=== PATIENT | male | born 1980 | race Caucasian/White ===

== ENCOUNTER 2017-06-02 12:11 | Emergency (ER) | payer OTHER ==
[~2017-06-02] VITALS: Ht 175.3 cm; Wt 63.7 kg
[~2017-06-02 12:11] MED LIST: ALPR1TAB3 PO; ALPR2TAB6 PO; AMPH10TA2 PO; CLON0.5T3 PO; CLON1TAB3 PO; OXYC20TA32 PO; POLY335019 PO
[2017-06-02 12:41] VITALS: TEMP 36.5; Ht 175.3 cm; Wt 63.7 kg
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
[2017-06-02] MEDS ORDERED: OXYCODONE HCL IR 5 MG TAB (IMMEDIATE RELEASE) PO STA (14:24)
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
[2017-06-02 14:43] VITALS: BP 129/84; PULSE 64; O2SAT 99
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
== END 2017-06-02 15:02 | disposition home or self-care (01) ==
LOC: C.EDB 12:13 → C.EDD 15:02
DX: T14.8 Other injury of unspecified body region (principal); Y04.0XXA Assault by unarmed brawl or fight, initial encounter; Y92.89 Other specified places as the place of occurrence of the external cause; F17.210 Nicotine dependence, cigarettes, uncomplicated; M54.17 Radiculopathy, lumbosacral region; K85.90 Acute pancreatitis without necrosis or infection, unspecified; I86.1 Scrotal varices; Z80.9 Family history of malignant neoplasm, unspecified

== ENCOUNTER 2017-07-02 10:34 | Emergency (ER) | payer OTHER ==
[~2017-07-02] VITALS: Ht 175.3 cm; Wt 67.1 kg
[2017-07-02 10:45] VITALS: TEMP 36.9; Ht 175.3 cm; Wt 67.1 kg
[2017-07-02] MEDS ORDERED: IBUP1CAP PO (10:57)
[2017-07-02] MEDS ORDERED: ALPR-411 PO (10:57)
[2017-07-02] MEDS ORDERED: HYDROCODONE/ACETAMOPHEN 5/325MG TAB PO STA (11:05)
[2017-07-02] MEDS ORDERED: AMOXICILLIN 500 MG CAP PO STA (11:05)
--- NOTE | 2017-07-02 11:11 | EMERGENCY ROOM VISIT NOTE ---
ED Visit Note First contact with patient: 10:57 CHIEF COMPLAINT: Toothache HISTORY OF PRESENT ILLNESS: This 29-year-old male patient has had a progressive toothache for 3 days in the right upper molar. The pain is now steady and severe and radiates to the face. He has an appointment on Tuesday with his dentist but states he did not sleep at all last night due to the pain. He has been taken [id number] Midol without any relief. The patient denies any palpable abscess in the mouth. Denies facial swelling or fever. REVIEW OF SYSTEMS: 6 system review was performed and was negative unless stated otherwise in history of present illness. PMH: The patient is healthy; half of pancreas removed as well as splenectomy SOCIAL HISTORY: Patient lives with his family. The patient admits to tobacco use but denies any alcohol use. PHYSICAL EXAM: Vital Signs: Were reviewed Reviewed Nurse's notes. GENERAL: 37- year-old white male appears uncomfortable secondary to tooth pain. MENTAL Status: Alert and oriented 3. MOUTH: Right upper molar is is tender to percussion. Mild gingiva erythema surrounding. No palpable abscess. FACE: There is no facial swelling, NECK: cervical or submandibular lymphadenopathy. LUNGS: Clear to auscultation without wheezes rales or rhonchi. CARDIAC: Regular rate and rhythm without murmur. EMERGENCY COURSE: The patient was evaluated. Prescription drug monitoring program was checked the patient does not have any recent chronic prescriptions. The patient was given dental wax. The patient was given [place] 5/325 mg 2 tablets by mouth for pain. He was also given amoxicillin 500 mg by mouth. The patient was discharged home with a family member driving. DIAGNOSIS: Dental caries and dentalgia DISCHARGE INSTRUCTIONS & TREATMENT: Take amoxicillin as prescribed. Ibuprofen 600 mg every 6 hours with food for pain. Take [place] as needed for more severe pain. Do not drive while taking the [place]. Use dental wax as directed. Keep scheduled appointment with your dentist on Tuesday for definitive care. Problem List Medical Problems: (1) Left lumbosacral radiculopathy Status: Chronic (2) Lumbar radicular pain Status: Chronic (3) Lumbar radicular pain Status: Chronic (4) Opioid dependence Status: Chronic (5) Pancreatic tumor Status: Resolved (6) Pancreatitis Status: Resolved (7) Scrotal Varices Status: Chronic Surgical Problems: (1) Femur fracture, right Status: Chronic (2) H/O splenectomy Status: Resolved (3) Pelvic fracture Status: Chronic Current/Historical Medications Scheduled PRN Alprazolam (Xanax), 1 TAB PO UD PRN for Anxiety Ibuprofen (Midol), 200 MG PO UD PRN for Pain Allergies Coded Allergies: No Known Allergies (Unverified , NONE, 07/02/17) Vital Signs Date Time Temp Pulse Resp B/P (MAP) Pulse Ox O2 Delivery O2 Flow Rate FiO2 07/02/17 10:45 36.9 55 20 104/63 94 Room Air Departure Information Referrals No Doctor, Assigned (PCP) Patient Instructions [facility]
[2017-07-02] MEDS ORDERED: HYDR-5688 PO (11:12)
[2017-07-02] MEDS ORDERED: AMOX500C3 PO (11:12)
[2017-07-02 11:44] VITALS: BP 132/64; PULSE 78; O2SAT 96
== END 2017-07-02 11:45 | disposition home or self-care (01) ==
LOC: C.EDB 10:36 → C.EDD 11:45
DX: K02.9 Dental caries, unspecified (principal); K08.89 Other specified disorders of teeth and supporting structures; M54.17 Radiculopathy, lumbosacral region; F11.20 Opioid dependence, uncomplicated; I86.1 Scrotal varices

== ENCOUNTER 2017-07-06 10:49 | Emergency (ER) | payer OTHER ==
[~2017-07-06] VITALS: Ht 175.3 cm; Wt 66.3 kg
[~2017-07-06 10:49] MED LIST changes: +ALPR-411 PO; -ALPR1TAB3 PO; -ALPR2TAB6 PO; +AMOX500C3 PO; -AMPH10TA2 PO; -CLON0.5T3 PO; -CLON1TAB3 PO; +HYDR-5688 PO; +IBUP1CAP PO; -OXYC20TA32 PO; -POLY335019 PO
[2017-07-06 10:54] VITALS: TEMP 36.8; Ht 175.3 cm; Wt 66.3 kg
[2017-07-06] MEDS ORDERED: MoRPHine SULFATE 4 MG/ML 1 ML CARP\\VIAL IV STA (11:29)
[2017-07-06] MEDS ORDERED: AMPICILLIN/SULBACTAM SOD INJ 3,000 MG in SODIUM CHLORIDE 0.9% 100ML 100 ML IV STA (11:29)
[2017-07-06] MEDS ORDERED: SODIUM CHLORIDE 0.9% 1000ML 1,000 ML IV STA (11:29)
[2017-07-06 12:00] LABS: BASO % 0.2 %; BASO ABS # 0.02 K/uL (0-0.2); COMPLETE YES; EOS % 0.9 %; HEMATOCRIT 40.6 % (42-52); IG% 0.3 %; LYMPH % 23.3 %; LYMPH ABS # 2.33 K/uL (1.2-3.4); MEAN CELL VOLUME 90.2 fL (80-100); MEAN CORPUSCULAR HGB CONC 35.5 g/dl (32-36); MEAN PLATELET VOLUME 11.6 fL (7.4-10.4); MONO % 14.3 %; PLATELET COUNT 320 K/uL (130-400)
[2017-07-06] MEDS ORDERED: ONDANSETRON INJ 2 MG/ML 2 ML VIAL IV STA (12:01)
[2017-07-06 12:08] LABS: BUN/CREATININE RATIO 16.2 (10-20); CALCIUM 9.4 mg/dl (8.5-10.1); CREATININE 0.86 mg/dl (0.60-1.40); POTASSIUM 4.5 mmol/L (3.5-5.1)
[2017-07-06 12:10] LABS: ALB/GLOB RATIO 1.2 (0.9-2)
[2017-07-06] MEDS ORDERED: AMOX875T PO (12:54)
[2017-07-06] MEDS ORDERED: OXYC1TAB3 PO (12:54)
--- NOTE | 2017-07-06 12:55 | EMERGENCY ROOM VISIT NOTE ---
History First contact with patient: 11:23 Chief Complaint: DENTAL PAIN Stated Complaint: TOOTH INFECTION Nursing Triage Summary: Patient states he was at the dentist today for eval of swelling to face. Patient was here on Tuesday and started on antibiotics for an dental abcess states it is not any better. History of Present Illness The patient is a 37 year old male who presents to the Emergency Room via private vehicle with complaints of "tooth infection". The patient states that he was seen here Tuesday for a dental infection. He states that the superior posterior right molars are in bad repair. He's been experiencing a lot of pain , and has been taking the amoxicillin 3 times a day as prescribed since Tuesday. He saw his dentist today, Dr. Swan. Review of Systems A complete 6-point Review of Systems was discussed with the patient, with pertinent positives and negatives listed in the History of Present Illness. All remaining Review of Systems questions can be considered negative unless otherwise specified. Past Medical/Surgical History Medical Problems: (1) Left lumbosacral radiculopathy (2) Lumbar radicular pain (3) Lumbar radicular pain (4) Opioid dependence (5) Pancreatic tumor (6) Pancreatitis (7) Scrotal Varices Surgical Problems: (1) Femur fracture, right (2) H/O splenectomy (3) Pelvic fracture Family History Cancer Social History Smoking Status: Current Every Day Smoker Alcohol Use: occasionally Marital Status: Housing Status: lives with significant other Occupation Status: unemployed Current/Historical Medications Scheduled Amoxicillin (Amoxil), 500 MG PO TID Amoxicillin & Pot Clavulanate (Augmentin 875-125 mg), 1 TAB PO BID Scheduled PRN Alprazolam (Xanax), 1 TAB PO UD PRN for Anxiety Ibuprofen (Midol), 200 MG PO UD PRN for Pain Oxycodone Ir (Roxicodone Ir), 1-2 TAB PO Q4H PRN for Pain Physical Exam Vital Signs Date Time Temp Pulse Resp B/P (MAP) Pulse Ox O2 Delivery O2 Flow Rate FiO2 07/06/17 13:17 65 18 133/93 95 07/06/17 10:54 36.8 64 20 139/78 95 Room Air Physical Exam VITAL SIGNS - Vital signs and nursing notes were reviewed. Stable. GENERAL - 37-year-old his appearing his stated age who is in no acute distress. Communicates well with provider and answers questions appropriately. SKIN - Without rashes. Small edema to right cheek region. No erythema. HEAD - NC/AT. EYES - PERRL with EOMI bilaterally. No pain with EOMs. EARS - No deformities of external structures noted on gross examination bilaterally. No pain elicited with palpation of the tragus bilaterally. External auditory canals without discharge or otorrhea. Tympanic membranes pearly serna without retraction or bulging. No fluid or purulent material visualized behind the TM. Handle of malleus, umbo, cone of light, pars tensa/ flaccid all easily visualized. NOSE - Midline and without cyanosis. No epistaxis or purulent drainage noted. Septum midline without deviation or septal hematoma noted. MOUTH/OROPHARYNX - Without perioral cyanosis. Buccal mucosa pink and moist and without leukoplakia. Tongue midline with equal elevation of palate bilaterally. No tonsillar hypertrophy, erythema, or exudates noted. Poor dentition noted. Right posterior superior molars in poor repair. No drainage. No evidence of Doe angina. NECK - Neck with FROM. Supple to palpation. Minimal right anterior cervical lymphadenopathy noted. No nuchal rigidity. NEUROLOGIC - Cranial nerves II through XII grossly intact. Sensory intact to light touch throughout. PSYCH - A&O, cooperates fully with examiner. Pt is very pleasant and interacts well with examiner. Medical Decision & Procedures Laboratory Results 07/06/17 11:20 Red Blood Count 4.50, Mean Corpuscular Volume 90.2, Mean Corpuscular Hemoglobin 32.0, Mean Corpuscular Hemoglobin Concent 35.5, Mean Platelet Volume 11.6, Neutrophils (%) (Auto) 61.0, Lymphocytes (%) (Auto) 23.3, Monocytes (%) (Auto) 14.3, Eosinophils (%) (Auto) 0.9, Basophils (%) (Auto) 0.2, Neutrophils # (Auto ) 6.10, Lymphocytes # (Auto) 2.33, Monocytes # (Auto) 1.43, Eosinophils # (Auto ) 0.09, Basophils # (Auto) 0.02 07/06/17 11:20 Test 07/06/17 11:20 07/06/17 11:58 White Blood Count 10.00 K/uL (4.8-10.8) Red Blood Count 4.50 M/uL (4.7-6.1) Hemoglobin 14.4 g/dL (14.0-18.0) Hematocrit 40.6 % (42-52) Mean Corpuscular Volume 90.2 fL (80-100) Mean Corpuscular Hemoglobin 32.0 pg (25-34) Mean Corpuscular Hemoglobin Concent 35.5 g/dl (32-36) Platelet Count 320 K/uL (130-400) Mean Platelet Volume 11.6 fL (7.4-10.4) Neutrophils (%) (Auto) 61.0 % Lymphocytes (%) (Auto) 23.3 % Monocytes (%) (Auto) 14.3 % Eosinophils (%) (Auto) 0.9 % Basophils (%) (Auto) 0.2 % Neutrophils # (Auto) 6.10 K/uL (1.4-6.5) Lymphocytes # (Auto) 2.33 K/uL (1.2-3.4) Monocytes # (Auto) 1.43 K/uL (0.11-0.59) Eosinophils # (Auto) 0.09 K/uL (0-0.5) Basophils # (Auto) 0.02 K/uL (0-0.2) RDW Standard Deviation 41.9 fL (36.4-46.3) RDW Coefficient of Variation 12.7 % (11.5-14.5) Immature Granulocyte % (Auto) 0.3 % Immature Granulocyte # (Auto) 0.03 K/uL (0.00-0.02) Anion Gap 5.0 mmol/L (3-11) Est Creatinine Clear Calc Drug Dose 109.2 ml/min Estimated GFR () 127.5 Estimated GFR (Non- 110.0 BUN/Creatinine Ratio 16.2 (10-20) Calcium Level 9.4 mg/dl (8.5-10.1) Total Bilirubin 0.5 mg/dl (0.2-1) Aspartate Amino Transf (AST/SGOT) 20 U/L (15-37) Alanine Aminotransferase (ALT/SGPT) 19 U/L (12-78) Alkaline Phosphatase 111 U/L (45-117) Total Protein 7.4 gm/dl (6.4-8.2) Albumin 4.0 gm/dl (3.4-5.0) Globulin 3.4 gm/dl (2.5-4.0) Albumin/Globulin Ratio 1.2 (0.9-2) Lactic Acid Level 0.7 mmol/L (0.4-2.0) Medications Administered Medications (Trade) Dose Ordered Sig/Angelito Route Start Time Stop Time Status Last Admin Dose Admin Sodium Chloride 1,000 ml @ 999 mls/hr Q1H1M STAT IV 07/06/17 11:29 07/06/17 12:29 DC 07/06/17 11:41 999 MLS/HR Morphine Sulfate (MoRPHine SULFATE INJ) 4 mg NOW STAT IV 07/06/17 11:29 07/06/17 11:31 DC 07/06/17 11:40 4 MG Ampicillin Sodium/ Sulbactam Sodium 3000 mg/Sodium Chloride 108 ml @ 200 mls/hr NOW STAT IV 07/06/17 11:29 07/06/17 12:01 DC 07/06/17 11:47 200 MLS/HR Ondansetron HCl (Zofran Inj) 4 mg NOW STAT IV 07/06/17 12:01 07/06/17 12:02 DC 07/06/17 12:05 4 MG Medical Decision Patient was seen and evaluated as above. He presents to us today with right facial swelling status post treatment here on Tuesday for a dental infection. IV access initiated, and the above workup was performed. 3 g of Unasyn were infused. He was also given morphine. He was reevaluated and feeling much better. No significant leukocytosis. Slight anemia noted. Metabolic panel unremarkable. No evidence of kidney or liver failure. He responded well to the intravenous antibiotics. He appears stable for outpatient management. He is to keep his appointment with the oral maxillary facial surgeon in one week. Case was discussed with the attending physician, who also personally evaluated the patient. He was educated upon management, will be given a short prescription for OxyIR as well as changing of his prescription antibiotic to Augmentin, discontinue IV amoxicillin, and returning for worsening. He was educated on worrisome symptoms which to return, had questions about issued, and was discharged home in good condition. No evidence of meningitis or encephalitis on exam. No evidence of Doe angina. In evaluation treatment this patient following differential diagnoses were entertained: Doe angina, dental infection, cellulitis, among others. [place] Results: patient reviewed within database, no issues identified Impression Primary Impression: Odontalgia Departure Information Dispostion Home / Self-Care Condition GOOD Prescriptions Oxycodone Ir (Roxicodone Ir) 5 Mg Tab 1-2 TAB PO Q4H Y for Pain, #15 TAB For Initial Treatment Prov: Haresh Barroso PA-C 07/06/17 Amoxicillin & Pot Clavulanate (Augmentin 875-125 mg) 1 Tab Tab 1 TAB PO BID for 10 Days, #20 TAB Prov: Haresh Barroso PA-C 07/06/17 Referrals No Doctor, Assigned (PCP) Patient Instructions My [facility] Additional Instructions You have been treated in the Emergency Department for Dental Pain. You have received pain medicine in the emergency department which impairs your ability to operate a vehicle. It is illegal for you to drive after receiving these medicines. You have been prescribed Oxy IR to be used for pain control. This is a narcotic medication. You cannot drive or consume alcohol while on this medicine. This medicine should only be used for pain that cannot be controlled with over-the- counter pain medicines. You were prescribed Augmentin to be taken every 12 hours. This is an antibiotic. All antibiotics have the potential to cause diarrhea. Stop this medication and contact a medical provider if you were to develop any significant adverse side effects including: wheezing, shortness of breath, passing out, vomiting, or a diffuse rash. Always take antibiotics as directed and COMPLETE the ENTIRE course regardless of the improvement of your symptoms. For pain control, you can use the following qfrv-zzu-jvlapxn medicines (if >12 yo): - Regular strength (325mg/tab) Tylenol (acetaminophen) 2 tabs every 4-6 hours as needed. Do not exceed 12 tablets in a 24 hour period. Avoid taking more than 3 grams (3000 mg) of Tylenol per day. This includes any other sources of acetaminophen you may take on a regular basis. - Regular strength (200 mg/tab) Advil (ibuprofen) 1-2 tabs every 4-6 hours as needed. Do not exceed a dose of 3200 mg per day. Refrain from smoking cigarettes or using chewing tobacco until you have been evaluated by your dentist. Keeping beverages lukewarm and consuming soft foods can decrease your pain. Warm compresses over the affected area may offer some relief. You MUST seek evaluation of your dental pain by a dentist following your visit to the Emergency Department. Please keep you appt for the upcoming week with the surgeon. Return to the emergency department if you develop the following symptoms despite treatment course outlined above: fever, intractable pain, increased redness, swelling, or purulent discharge.
--- NOTE | 2017-07-06 12:59 | EMERGENCY ROOM VISIT NOTE ---
ED Visit Note First contact with patient: 11:23 37-year-old male with right facial pain. The patient was fully evaluated by Haresh Barroso PA-C. Please see his note. I also independently evaluated the patient. The patient was sent here by his dentist for IV antibiotics. The patient was given IV Unasyn. The patient felt that her. His white count is normal. He does not appear septic. The patient will be discharged but will be prescribed a new oral antibiotic.
[2017-07-06 13:17] VITALS: BP 133/93; PULSE 65; O2SAT 95
== END 2017-07-06 13:10 | disposition home or self-care (01) ==
LOC: C.EDB 10:50 → C.EDD 13:10
DX: K04.7 Periapical abscess without sinus (principal); K86.1 Other chronic pancreatitis; F17.200 Nicotine dependence, unspecified, uncomplicated; Z87.81 Personal history of (healed) traumatic fracture; Z80.9 Family history of malignant neoplasm, unspecified

== ENCOUNTER 2017-10-20 15:46 | Inpatient (IN) | payer OTHER ==
[~2017-10-20] VITALS: Ht 175.3 cm; Wt 66.1 kg
[2017-10-20] VITALS (8 sets, daily range): BP systolic 113–178; BP diastolic 70–106; PULSE 41–60; TEMP 36.9; O2SAT 100; Ht 175.3 cm; Wt 66.1 kg
[~2017-10-20 15:46] MED LIST changes: -AMOX500C3 PO; -HYDR-5688 PO; +OXYC1TAB3 PO
[2017-10-20] MEDS ORDERED: SODIUM CHLORIDE 0.9% 1000ML 1,000 ML IV STA (16:11)
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
[2017-10-20] MEDS ORDERED: GABA400C PO (16:13)
[2017-10-20] MEDS ORDERED: ZOLP10TA PO (16:13)
[2017-10-20] MEDS ORDERED: CYM/30 PO (16:13)
[2017-10-20] MEDS ORDERED: DEXAMETHASONE **PF** INJ 10 MG/ML VIAL IV ONE (16:15)
[2017-10-20] MEDS ORDERED: OPTIRAY 320 IV PRN (16:30)
[2017-10-20 16:37] LABS: BASO % 0.1 %; BASO ABS # 0.01 K/uL (0-0.2); EOS % 1.5 %; EOS ABS # 0.19 K/uL (0-0.5); HEMATOCRIT 40.8 % (42-52); IG# 0.03 K/uL (0.00-0.02); LYMPH ABS # 4.23 K/uL (1.2-3.4); MEAN CELL VOLUME 94.2 fL (80-100); MEAN CORPUSCULAR HEMOGLOBIN 32.3 pg (25-34); MEAN CORPUSCULAR HGB CONC 34.3 g/dl (32-36); MEAN PLATELET VOLUME 11.3 fL (7.4-10.4); MONO % 10.1 %; MONO ABS # 1.29 K/uL (0.11-0.59); NEUT % 55.1 %; NEUT ABS # 7.07 K/uL (1.4-6.5); PLATELET COUNT 355 K/uL (130-400); RED CELL DISTRIBUTION WIDTH SD 45.3 fL (36.4-46.3); WHITE BLOOD COUNT 12.82 K/uL (4.8-10.8)
--- NOTE | 2017-10-20 16:49 | DIAGNOSTIC IMAGING REPORT ---
CHEST ONE VIEW PORTABLE CLINICAL HISTORY: Pain, radiating to the abdomen. COMPARISON STUDY: 01/14/2016 FINDINGS: The cardiac and mediastinal contours are normal. There is no evidence of focal pulmonary consolidation. There is no evidence of failure. No pleural effusions are visualized. No free air is visualized on this portable supine examination.[ IMPRESSION: No acute findings. The examination is limited due to the AP supine technique. Electronically signed by: Erwin Gilliam M.D. 10/20/2017 4:47 PM Dictated Date/Time: 10/20/2017 4:46 PM
[2017-10-20 17:01] LABS: ALBUMIN 3.6 gm/dl (3.4-5.0); BLOOD UREA NITROGEN 7 mg/dl (7-18); CALCIUM 8.7 mg/dl (8.5-10.1); CARBON DIOXIDE 30 mmol/L (21-32); CREATININE 1.24 mg/dl (0.60-1.40); GLUCOSE 132 mg/dl (70-99); LIPASE 70 U/L (73-393); POTASSIUM 3.7 mmol/L (3.5-5.1); SODIUM 137 mmol/L (136-145)
[2017-10-20 17:14] LABS: ALKALINE PHOSPHATASE 112 U/L (45-117); ALT/SGPT 22 U/L (12-78); AST/SGOT 19 U/L (15-37); TOTAL PROTEIN 7.2 gm/dl (6.4-8.2)
[2017-10-20] MEDS ORDERED: NALOXONE HCL 0.4 MG/1 ML VIAL/CARP ONE (17:36)
--- NOTE | 2017-10-20 18:10 | DIAGNOSTIC IMAGING REPORT ---
CT HEAD WITHOUT CONTRAST (CT) CLINICAL HISTORY: Head pain status post trauma. Change in mental status. COMPARISON STUDY: 06/02/2017 TECHNIQUE: Axial CT of the brain is performed from the vertex to the skull base. IV contrast was not administered for this examination. A dose lowering technique was utilized adhering to the principles of ALARA. CT DOSE: FINDINGS: No intra or extra-axial mass lesions are visualized. There is no CT evidence of acute cortical infarction. There is no evidence of midline shift. There is no acute hemorrhage. No calvarial fractures are visualized. There is no evidence of pathologic ventricular dilatation. There is no evidence of acute sinusitis IMPRESSION: No acute intracranial findings Electronically signed by: Erwin Gilliam M.D. 10/20/2017 6:08 PM Dictated Date/Time: 10/20/2017 6:01 PM
--- NOTE | 2017-10-20 18:10 | DIAGNOSTIC IMAGING REPORT ---
CT FACIAL-MAXILLOFACIAL WITH CT DOSE: 1486.39 mGy.cm CLINICAL HISTORY: Facial swelling. Possible abscess. TECHNIQUE: The patient was scanned in a helical fashion during intravenous administration of 93 cc of Optiray 320. A dose lowering technique was utilized adhering to the principles of ALARA. COMPARISON STUDY: 06/02/2017 FINDINGS: The visualized portions intracranial contents appear unremarkable in appearance. There is mild disconjugate ocular gaze. No orbital masses are visualized. No mucosal space masses are visualized. There is no evidence of pathologic adenopathy. There are no fluid collections to indicate an abscess. There is no evidence of acute sinusitis. There is no evidence of airway compromise. There is a stable subcutaneous cystic lesion located anterior to the left masseter muscle measuring 11 mm. There is nasal septal deviation to the right. IMPRESSION: 1. No evidence of acute sinusitis 2. No evidence of abscess 3. No acute facial fractures identified 4. Stable 11 mm subcutaneous cystic lesion located anterior to the left masseter muscle Electronically signed by: Erwin Gilliam M.D. 10/20/2017 6:09 PM Dictated Date/Time: 10/20/2017 6:03 PM
[2017-10-20] MEDS ORDERED: RAPID SEQUENCE INDUCTION BAG ONE (18:25)
[2017-10-20] MEDS ORDERED: PROPOFOL IV EMULSION 10 MG/ML 100 ML VIAL IV PRN (18:45)
[2017-10-20] MEDS ORDERED: FENTANYL 1250MCG/250ML NSS IV PRN (18:45)
[2017-10-20] MEDS ORDERED: VANCOMYCIN INJ 1,500 MG in SODIUM CHLORIDE 0.9% 500ML 500 ML IV STA (19:01)
[2017-10-20] MEDS ORDERED: PIPERACILLIN/TAZOBACTAM 4.5 GM/100ML D5W IV STA (19:01)
[2017-10-20] MEDS ORDERED: VANCOMYCIN INJ 1,000 MG in SODIUM CHLORIDE 0.9% 250ML 250 ML IV STA (19:28)
[2017-10-20] MEDS ORDERED: ICU PROTOCOL FOR HYPERGLYCEMIA PRN (19:45)
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
[2017-10-20] MEDS ORDERED: ACYCLOVIR SOD IV ONE (20:30)
[2017-10-20] MEDS ORDERED: CEFTRIAXONE SOD INJ 2,000 MG in DEXTROSE 5% 50ML 50 ML IV ONE (20:30)
[2017-10-20] MEDS ORDERED: DEXTROSE 5% IV ONE (20:30)
[2017-10-20 21:02] LABS: CSF TOTAL PROTEIN 31.5 mg/dl (15.0-45.0)
--- NOTE | 2017-10-20 21:04 | DIAGNOSTIC IMAGING REPORT ---
(CHEST) THORAX WITHOUT CLINICAL HISTORY: Confusion. Respiratory failure. COMPARISON STUDY: 06/23/2015 CT DOSE: 363.78 mGy.cm TECHNIQUE: CT of the thorax was performed from the thoracic inlet to the lung bases. Images are reviewed in the axial, sagittal, and coronal planes. IV contrast was not administered for this examination. A dose lowering technique was utilized adhering to the principles of ALARA. FINDINGS: Thyroid: Imaged portions of the thyroid gland are normal in appearance. Thoracic aorta: The thoracic aorta is normal in course and caliber, noting standard 3 vessel arch anatomy. Heart: The heart is normal in size and configuration, without pericardial effusion. Lungs and pleural spaces: There are no significant pleural effusions. There are bilateral dependent pulmonary airspace opacities, likely atelectatic. There is mild emphysema. There is a small amount of debris within the right mainstem bronchus and bronchus intermedius. There is an endotracheal tube 42 mm above the vianca. There is stable nodularity along the minor fissure. There is a 6 mm left upper lobe pulmonary nodule abutting the major fissure. This appears larger than on the preceding study. There are scattered ill-defined left lower lobe pulmonary nodules, the largest of which measures 7.9 mm and is located on image #[id number]. An infectious/inflammatory etiology is suspected. 3 month follow-up CT scanning is recommended. Mediastinum: There is a mildly enlarged precarinal lymph node measuring 12 mm. This remain similar to the prior study Violeta: There is no evidence of pathologic hilar adenopathy given the limitations of a noncontrast study Axilla: There is no evidence of pathologic axillary lymphadenopathy Upper abdomen: Both kidneys demonstrate contrast excretion. There is a nasogastric tube within the stomach. Skeletal structures: There are no lytic or blastic osseous lesions. IMPRESSION: 1. Endotracheal tube 42 mm above the vianca 2. Nasogastric tube within the stomach 3. Small amount of mucoid debris within the right mainstem bronchus and bronchus intermedius 4. Ill-defined left lower lobe pulmonary nodules, the largest of which measures 7.9 mm. An infectious/inflammatory etiology is suspected. [address] scanning is recommended 5. Mildly enlarged precarinal lymph node 6. Bilateral dependent pulmonary airspace opacities likely atelectatic 7. Mild emphysema Electronically signed by: Erwin Gilliam M.D. 10/20/2017 9:03 PM Dictated Date/Time: 10/20/2017 8:53 PM
[2017-10-20] MEDS: SODIUM CHLORIDE 0.9% 1000ML 1,000 ML IV SCH (21:28)
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
[2017-10-20 21:53] LABS: INFLUENZA A PCR Neg for Influ A (NEG); INFLUENZA B PCR Neg for Influ B (NEG)
[2017-10-20] MEDS ORDERED: DEXAMETHASONE INJ 10 MG in SYRINGE 0 ML IV SCH (22:00)
[2017-10-20] MEDS ORDERED: VANCOMYCIN CONSULT ACTIVE PRN (22:00)
[2017-10-20] MEDS ORDERED: AMPICILLIN IV 2,000 MG in SODIUM CHLOR 0.9% AD-VAN 100ML 100 ML IV ONE (22:00)
--- NOTE | 2017-10-20 22:40 | DIAGNOSTIC IMAGING REPORT ---
MRI OF THE BRAIN WITHOUT CONTRAST CLINICAL HISTORY: obtundation CONFUSION, CHANGE IN MENTAL STATUS. COMPARISON STUDY: Noncontrast head CT dated 10/20/2017 FINDINGS: Sagittal T1, axial diffusion, proton density and T2 weighted axial, coronal FLAIR, and axial T1-weighted images were acquired. No intra or extra-axial mass lesions are visualized Axial diffusion-weighted images reveal no evidence of acute or subacute infarction. There is no evidence of ventricular dilatation. Proton density T2-weighted and FLAIR images reveal no significant intraparenchymal signal abnormalities. There are no abnormal flow voids. Small foci of increased T2 signal within the right mastoid are likely inflammatory. IMPRESSION: 1. No evidence of acute or subacute infarction 2. No evidence of intracranial mass 3. Minor foci of increased T2 signal within the right mastoid, likely inflammatory Electronically signed by: Erwin Gilliam M.D. 10/20/2017 10:39 PM Dictated Date/Time: 10/20/2017 10:36 PM
[2017-10-20] MEDS: GABAPENTIN 100 MG CAP PO SCH (23:26)
[2017-10-20] MEDS: DULOXETINE (CYMBALTA) 30 MG CAP PO SCH (23:26)
[2017-10-20 23:43] LABS: INR 0.9 (0.9-1.1); PTT PATIENT 28.2 SECONDS (21.0-31.0)
[2017-10-21] VITALS (20 sets, daily range): BP systolic 101–181; BP diastolic 52–97; PULSE 42–70; TEMP 36.3–36.6; O2SAT 92–100
[2017-10-21] MEDS ORDERED: INFLUENZA ADMINISTRATION CHARGE ONE (01:15)
[2017-10-21] MEDS ORDERED: INFLUENZA VIRUS QUAD VACCINE 0.5 ML SYR IM. ONE (01:15)
[2017-10-21] MEDS ORDERED: AMPICILLIN IV 2,000 MG in SODIUM CHLOR 0.9% AD-VAN 100ML 100 ML IV SCH (01:30)
[2017-10-21] MEDS ORDERED: DEXTROSE 5% IV SCH (04:00)
[2017-10-21] MEDS ORDERED: ACYCLOVIR SOD IV SCH (04:00)
[2017-10-21 04:03] LABS: BASO % 0.1 %; BASO ABS # 0.01 K/uL (0-0.2); HEMATOCRIT 38.7 % (42-52); HEMOGLOBIN 13.2 g/dL (14.0-18.0); IG# 0.03 K/uL (0.00-0.02); LYMPH % 6.4 %; LYMPH ABS # 0.83 K/uL (1.2-3.4); MEAN CELL VOLUME 94.9 fL (80-100); MEAN CORPUSCULAR HEMOGLOBIN 32.4 pg (25-34); MEAN CORPUSCULAR HGB CONC 34.1 g/dl (32-36); MONO % 4.3 %; MONO ABS # 0.56 K/uL (0.11-0.59); NEUT ABS # 11.47 K/uL (1.4-6.5); PLATELET COUNT 341 K/uL (130-400); RED CELL DISTRIBUTION WIDTH CV 12.8 % (11.5-14.5); RED CELL DISTRIBUTION WIDTH SD 44.4 fL (36.4-46.3)
[2017-10-21 04:45] LABS: ALBUMIN 3.4 gm/dl (3.4-5.0); ALKALINE PHOSPHATASE 105 U/L (45-117); ALT/SGPT 32 U/L (12-78); AST/SGOT 53 U/L (15-37); BLOOD UREA NITROGEN 5 mg/dl (7-18); CALCIUM 8.3 mg/dl (8.5-10.1); CARBON DIOXIDE 32 mmol/L (21-32); CREATININE 0.88 mg/dl (0.60-1.40); GLUCOSE 146 mg/dl (70-99); PHOSPHORUS 2.9 mg/dl (2.5-4.9); POTASSIUM 4.6 mmol/L (3.5-5.1); SODIUM 136 mmol/L (136-145)
--- NOTE | 2017-10-21 05:39 | Critical Care Progress Note ---
Critical Care Progress Note Date of Service Oct 21, 2017. Critical Care Progress Note At 2330 on 10/20/17, pts was awake with sedation off for approx 30 minutes when he was attempted on weaning trial. Pt met parameters including following commands, holding his head off the bed, NIF -48, RSBI 15, Vital Capacity of 2L. Pt was extubated successfully to nasal cannula. During sleep he does drop to a RR of 8-10 at times, but at no time has he demonstrated hypoxia. End Tidal CO2 was running in the 40s throughout the night. Pt has a sore throat from the ET tube and discomfort of the hardy catheter; pt states he feels that he is at his baseline. He is unsure what caused his illness but reports having just woke up with the swelling of hands, feet, and face. He states all swelling is back to baseline now. I have personally evaluated and examined this patient. I agree with assessment and plan of Maggie Ga PA-C. Patient was alert and oriented, exhibiting no signs of meningitis. Patient was successfully extubated, placed on end-tidal CO2 monitoring to evaluate for central apneas. I do not feel that the patient has a significant central apnea. Of note the patient had a relative who was admitted at the same time. Through nursing staff was reported this relative states that he had overdosed on his Xanax. I reviewed the [facility] [employer] [facility] and he does take Xanax as well as Ambien which she receives monthly prescriptions for. He does not appear to be going to multiple providers and he gets his prescriptions filled at one pharmacy. It is possible that this could be medication related, he does admit to smoking marijuana. At this point I do not feel that he is at risk for HSV encephalitis, and he also believe it is unlikely that he is exhibiting signs of a paraneoplastic syndrome.
[2017-10-21] MEDS ORDERED: HEPARIN SOD 5000 UNIT/0.5 ML CARP SQ SCH (06:00)
[2017-10-21 06:33] LABS: HEMOGLOBIN A1C 5.2 % (4.5-5.6)
--- NOTE | 2017-10-21 06:37 | DIAGNOSTIC IMAGING REPORT ---
CHEST ONE VIEW PORTABLE HISTORY: 37 years-old Male confirm ETT status post placement of an endotracheal tube. Acute respiratory failure. COMPARISON: Chest radiograph 10/20/2017, CT chest 10/20/2017 TECHNIQUE: Portable AP view of the chest FINDINGS: Endotracheal tube overlies the midline, 5.3 cm superior to the level the vianca. Enteric tube courses below the diaphragm into the region of the gastric lumen. The bones appear grossly intact. Cardiac silhouette is within normal limits. Increased lucency of the lungs suggests emphysema. No pneumothorax or pleural effusion. Mild right hemidiaphragmatic elevation. IMPRESSION: 1. Endotracheal tube overlies the midline, 5.3 cm superior to the vianca. 2. Enteric tube courses into the region of the gastric lumen. 3. Increased lucency of the lungs suggests emphysema. No pneumothorax. The above report was generated using voice recognition software. It may contain grammatical, syntax or spelling errors. Electronically signed by: Mesfin Miguel M.D. 10/21/2017 6:35 AM Dictated Date/Time: 10/21/2017 6:33 AM
[2017-10-21] MEDS: DULOXETINE (CYMBALTA) 30 MG CAP PO SCH (07:54)
[2017-10-21] MEDS: GABAPENTIN 100 MG CAP PO SCH (07:54)
[2017-10-21] MEDS: SODIUM CHLORIDE 0.9% 1000ML 1,000 ML IV SCH (07:54)
[2017-10-21] MEDS ORDERED: CEFTRIAXONE SOD INJ 2,000 MG in DEXTROSE 5% 50ML 50 ML IV SCH (08:00)
[2017-10-21] MEDS ORDERED: NICOTINE 21 MG/24 HR TDSY TD SCH (09:00)
[2017-10-21] MEDS ORDERED: NURSING VERBAL MED ORDER ONE (09:30)
[2017-10-21] MEDS ORDERED: ALPRAZOLAM 0.5 MG TAB ONE (09:30)
--- NOTE | 2017-10-21 09:44 | Neurology Consultation ---
Neurology Consultation Date of Consultation: Oct 21, 2017. Attending Physician: Kenny Doherty M.D. Primary Care Physician: No Doctor, Assigned Reason for Consultation: A consultation for altered mental status and question of paraneoplastic syndrome History of Present Illness Source: patient, hospital records This is a 2-year-old male who presented with severe headache and swelling. Reportedly a coworker had noted 3 days before that he was acting odd as well as his family. Patient reports that he often doesn't get enough sleep due to his family and work schedule. Patient reports that yesterday he ate [employer] and afterwards had a severe headache and had "triple vision". Patient reports that he rarely gets a headache but when he does it does tend to be a severe one with visual changes and he reports that the headache that he had yesterday is a similar headache that he's had in the past. The thing that was different is that his girlfriend and family noted that he seemed to be having swelling of his face and eyes. Progressed to his hands and feet and he did have a sense of swelling in his mouth as well. He denies any new exposures that could've caused an allergic reaction. It 9 any rashes. Denied any fevers. He denies any new chemical exposures. Denies any new medications or supplements. Denies any recent drug use. He does report that he uses marijuana on occasion as last marijuana use was 4 days ago. He does admit to a history of heroin use a few years ago but denies any recent other illicit drug use. Patient denies that he is ever had this type of reaction before. Patient tried to wait it out at home but apparently became drowsy and lethargic and was brought to the emergency room. Due to his mental status and concern for swelling and airway he was electively intubated. Patient reports that he is at his physiological neurological baseline this morning and once to go home. He denies any swelling. Denies any headaches. Denies any weakness or numbness. Reportedly family has also noted that he had a similar confusional episode in the past which today originally attributed to drug use. Patient does use Xanax on a regular basis and is asking for his Xanax this morning. WBCs noted to be 12. Tox screen positive for benzos and marijuana. HIV negative CSF cell count unremarkable. 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 Lumbar radiculopathy pain History of heroin and narcotic abuse Family History Patient denies any significant family history and reports that his parents are healthy. Social History Patient is employed. Has children. Is normally independent in his activities of daily living. Smokes a half pack to 2 packs per day. Denies any alcohol use in excess. Denies any illicit drug use other than occasional marijuana. Alcohol Use: none Drug Use: marijuana Marital Status: single Housing Status: lives with significant other Occupation Status: unemployed Allergies Coded Allergies: No Known Allergies (Unverified , NONE, 10/20/17) Current Inpatient Medications Current Inpatient Medications Medications (Trade) Dose Ordered Sig/Angelito Route Start Time Stop Time Status Last Admin Dose Admin Ioversol (Optiray 320) 125 ml UD PRN IV 10/20/17 16:30 10/24/17 16:29 Acyclovir Sodium 700 mg/Dextrose 264 ml @ 265 mls/hr Q8H IV 10/21/17 04:00 10/30/17 19:59 10/21/17 03:39 265 MLS/HR Duloxetine HCl (Cymbalta Cap) 30 mg BID PO 10/20/17 21:00 11/19/17 20:59 10/21/17 07:54 30 MG Gabapentin (Neurontin Cap) 200 mg TID PO 10/20/17 21:00 11/19/17 20:59 10/21/17 07:54 200 MG Heparin Sodium (Porcine) (Heparin Sq 5000 Unit/0.5ml) 5,000 unit Q8H SQ 10/21/17 06:00 11/20/17 05:59 10/21/17 05:46 5,000 UNIT Sodium Chloride 1,000 ml @ 100 mls/hr Q10H IV 10/20/17 21:30 11/19/17 21:29 10/21/17 07:54 100 MLS/HR Pantoprazole Sodium 40 mg/ Syringe 10 ml @ 5 mls/min DAILY@1100 IV 10/21/17 11:00 11/20/17 10:59 Miscellaneous Information (Icu Protocol For Hyperglycemia) 1 ea PRN PRN N/A 10/20/17 19:45 10/22/17 19:44 Nicotine (Nicoderm Cq 21MG Patch) 1 patch QAM TD 10/21/17 09:00 11/20/17 08:59 10/21/17 09:15 1 PATCH Miscellaneous (Remove Nicoderm Patch) 1 ea HS N/A 10/21/17 21:00 11/20/17 20:59 Review of Systems Complete review of systems otherwise negative except for the above noted in history of present illness Physical Exam Vital Signs (Past 24 Hrs): Date Time Temp Pulse Resp B/P (MAP) Pulse Ox O2 Delivery O2 Flow Rate FiO2 10/21/17 06:01 47 15 119/72 (81) 96 10/21/17 04:01 56 17 125/80 (87) 100 10/21/17 04:00 36.3 10/21/17 04:00 97 Nasal Cannula 2.0 10/21/17 03:31 49 16 101/54 (68) 97 10/21/17 03:01 54 13 106/73 (86) 92 10/21/17 02:36 45 9 116/74 (84) 98 10/21/17 02:01 54 12 102/52 (75) 100 10/21/17 02:00 51 10 99 10/21/17 01:31 42 12 109/69 (71) 99 10/21/17 01:30 47 11 99 10/21/17 01:01 47 17 125/77 (85) 100 10/21/17 01:00 59 18 99 10/21/17 00:30 57 15 100 10/21/17 00:03 99 Nasal Cannula 4.0 10/21/17 00:01 36.6 10/21/17 00:01 46 15 181/97 (113) 100 10/21/17 00:01 46 15 181/97 (113) 100 10/21/17 00:00 53 17 100 10/20/17 23:59 50 10/20/17 23:59 100 Mechanical Ventilator 50 10/20/17 23:38 100 10/20/17 23:31 53 14 165/97 (120) 100 10/20/17 23:10 42 14 133/86 (108) 100 10/20/17 23:03 100 10/20/17 22:46 41 14 116/71 (81) 100 10/20/17 21:39 36.9 43 14 113/70 100 Mechanical Ventilator 50 10/20/17 21:31 43 14 113/70 (82) 100 10/20/17 21:11 44 13 131/80 (88) 100 10/20/17 21:05 100 10/20/17 21:03 60 14 178/106 (122) 100 10/20/17 20:32 47 14 Mechanical Ventilator 50 10/20/17 20:31 117/71 10/20/17 20:27 47 14 100 Mechanical Ventilator 50 10/20/17 20:26 118/73 10/20/17 20:22 48 14 100 Mechanical Ventilator 50 10/20/17 20:21 119/70 10/20/17 20:21 50 10/20/17 20:17 51 14 100 Mechanical Ventilator 50 10/20/17 20:16 114/71 10/20/17 20:12 53 14 100 Mechanical Ventilator 50 10/20/17 20:11 120/75 10/20/17 20:07 53 14 100 Mechanical Ventilator 50 10/20/17 20:06 146/89 10/20/17 20:02 53 20 100 Mechanical Ventilator 50 10/20/17 19:57 54 20 100 Mechanical Ventilator 50 10/20/17 19:52 55 20 100 Mechanical Ventilator 100 10/20/17 19:47 145/88 10/20/17 19:46 57 20 100 Mechanical Ventilator 10/20/17 19:41 48 20 150/88 100 Mechanical Ventilator 10/20/17 19:36 46 20 122/78 100 Mechanical Ventilator 10/20/17 19:35 128/81 10/20/17 19:31 48 20 100 Mechanical Ventilator 10/20/17 19:26 129/84 10/20/17 19:25 47 20 Mechanical Ventilator 10/20/17 19:24 118/84 10/20/17 19:20 49 20 Mechanical Ventilator 10/20/17 19:17 116/ 10/20/17 19:15 52 20 Mechanical Ventilator 10/20/17 19:10 50 20 100 Mechanical Ventilator 10/20/17 19:06 116/74 10/20/17 19:05 54 20 Mechanical Ventilator 10/20/17 19:01 125/72 10/20/17 19:00 60 20 Mechanical Ventilator 10/20/17 18:59 100 10/20/17 18:57 143/87 10/20/17 18:55 74 22 100 Mechanical Ventilator 10/20/17 18:51 118/71 10/20/17 18:50 48 20 100 Mechanical Ventilator 10/20/17 18:46 109/71 10/20/17 18:45 52 20 100 Mechanical Ventilator 10/20/17 17:30 62 139/75 94 Nasal Cannula 3.0 10/20/17 17:03 61 112/73 100 Nasal Cannula 3.0 10/20/17 16:27 57 122/73 97 Nasal Cannula 3.0 10/20/17 16:23 50 10/20/17 16:07 97 Nasal Cannula 3.0 10/20/17 16:07 97 Nasal Cannula 3.0 10/20/17 16:05 Nasal Cannula 3.0 93 10/20/17 15:53 36.9 65 16 131/78 94 Room Air Gen.: Patient is alert and sitting in bed, in no acute distress. HEENT: Normocephalic /atraumatic, no scleral icterus Heart: Regular rate and rhythm Extremities: No gross deformities or rashes noted Neurological examination: Mental status: Patient is alert and oriented x3. Attention and concentration normal for the situation. Good fund of knowledge. Remote and recent memory intact. Speech is fluent without any dysarthria or aphasia noted Cranial nerve: Funduscopic examination was unremarkable. No papilledema. Pupils equally round and reactive to light. Extraocular muscles intact without nystagmus. No facial asymmetry noted. Facial sensation intact. Tongue is midline. Good palatal elevation. Good shoulder shrug bilaterally. Hearing grossly intact to voice. Strength: 5/5 both proximal and distally in all extremities. There is no arm drift. Tone is normal. Sensation: Grossly intact to light touch in all extremities. Deep tendon reflexes: +2 in bilateral biceps, brachioradialis and patellar. Toes were downgoing to plantar stimulation Coordination: Patient had good finger to nose without dysmetria Station within the bed was normal Laboratory Results Past 24 Hours: 10/21/17 03:51 Red Blood Count 4.08, Mean Corpuscular Volume 94.9, Mean Corpuscular Hemoglobin 32.4, Mean Corpuscular Hemoglobin Concent 34.1, Mean Platelet Volume 11.0, Neutrophils (%) (Auto) 89.0, Lymphocytes (%) (Auto) 6.4, Monocytes (%) (Auto) 4.3, Eosinophils (%) (Auto) 0.0, Basophils (%) (Auto) 0.1, Neutrophils # (Auto) 11.47, Lymphocytes # (Auto) 0.83, Monocytes # (Auto) 0.56, Eosinophils # (Auto) 0.00, Basophils # (Auto) 0.01 10/21/17 03:51 Test 10/20/17 16:05 10/20/17 16:55 10/20/17 19:05 10/20/17 19:42 Nucleated RBC Absolute Count (auto) 0.00 K/uL (0-0) Nucleated Red Blood Cells % 0.0 % Toxic Vacuolation 1+ Pappenheimer Bodies 1+ Miller-Slating[place] Bodies 1+ Lipase 70 U/L (73-393) Procalcitonin < 0.05 ng/ml (0-0.5) Thyroid Stimulating Hormone (TSH) 0.460 uIu/ml (0.300-4.500) Ethyl Alcohol mg/dL < 3.0 mg/dl (0-3) Urine Color YELLOW Urine Appearance CLEAR (CLEAR) Urine pH 5.0 (4.5-7.5) Urine Specific [place] 1.027 (1.000-1.030) Urine Protein NEG (NEG) Urine Glucose (UA) NEG (NEG) Urine Ketones NEG (NEG) Urine Occult Blood NEG (NEG) Urine Nitrite NEG (NEG) Urine Bilirubin NEG (NEG) Urine Urobilinogen NEG (NEG) Urine Leukocyte Esterase NEG (NEG) Urine WBC (Auto) 0 /hpf (0-5) Urine RBC (Auto) 0-4 /hpf (0-4) Urine Hyaline Casts (Auto) 1-5 /lpf (0-5) Urine Epithelial Cells (Auto) 10-20 /lpf (0-5) Urine Bacteria (Auto) NEG (NEG) Urine Opiates Screen NEG (NEG) Urine Methadone, Qualitative NEG (NEG) Urine Barbiturates NEG (NEG) Urine Phencyclidine (PCP) Level NEG (NEG) Ur Amphetamine/Methamphetamine NEG (NEG) MDMA (Ecstasy) Screen NEG (NEG) Urine Benzodiazepines Screen POS (NEG) Urine Cocaine Metabolite NEG (NEG) Urine Marijuana (THC) POS (NEG) Test 10/20/17 19:50 10/20/17 20:04 10/20/17 21:00 10/20/17 22:57 CSF Color COLORLESS CSF Appearance CLEAR CSF WBC 0 /uL (0-5) CSF RBC 173 /uL (0) CSF Xanthrochromic NO XANTHOCHROMIA CSF Cell Count Tube # 1 CSF Chemistry Tube # 2 CSF Glucose 69 mg/dl (40-70) CSF Total Protein 31.5 mg/dl (15.0-45.0) Carboxyhemoglobin 5.1 % THgb Salicylates Level 3.1 mg/dl (2.8-20) Acetaminophen Level < 2 ug/ml (10-30) Monoscreen NEG (NEG) Anti-Streptolysin O Antibody Screen NEG IU/ml (<200 IU) Influenza Type A (RT-PCR) Neg for Influ A (NEG) Influenza Type B (RT-PCR) Neg for Influ B (NEG) Prothrombin Time 9.9 SECONDS (9.0-12.0) Prothromb Time International Ratio 0.9 (0.9-1.1) Activated Partial Thromboplast Time 28.2 SECONDS (21.0-31.0) Partial Thromboplastin Ratio 1.1 HIV (1&2) Ab and P24 Ag, 4th Gener NEG (NEG) Test 10/21/17 03:51 10/21/17 05:40 10/21/17 07:46 10/21/17 08:00 White Blood Count 12.90 K/uL (4.8-10.8) Red Blood Count 4.08 M/uL (4.7-6.1) Hemoglobin 13.2 g/dL (14.0-18.0) Hematocrit 38.7 % (42-52) Mean Corpuscular Volume 94.9 fL (80-100) Mean Corpuscular Hemoglobin 32.4 pg (25-34) Mean Corpuscular Hemoglobin Concent 34.1 g/dl (32-36) Platelet Count 341 K/uL (130-400) Mean Platelet Volume 11.0 fL (7.4-10.4) Neutrophils (%) (Auto) 89.0 % Lymphocytes (%) (Auto) 6.4 % Monocytes (%) (Auto) 4.3 % Eosinophils (%) (Auto) 0.0 % Basophils (%) (Auto) 0.1 % Neutrophils # (Auto) 11.47 K/uL (1.4-6.5) Lymphocytes # (Auto) 0.83 K/uL (1.2-3.4) Monocytes # (Auto) 0.56 K/uL (0.11-0.59) Eosinophils # (Auto) 0.00 K/uL (0-0.5) Basophils # (Auto) 0.01 K/uL (0-0.2) RDW Standard Deviation 44.4 fL (36.4-46.3) RDW Coefficient of Variation 12.8 % (11.5-14.5) Immature Granulocyte % (Auto) 0.2 % Immature Granulocyte # (Auto) 0.03 K/uL (0.00-0.02) Anion Gap 2.0 mmol/L (3-11) Est Creatinine Clear Calc Drug Dose 106.3 ml/min Estimated GFR () 126.3 Estimated GFR (Non- 109.0 BUN/Creatinine Ratio 5.7 (10-20) Estimated Average Glucose 103 mg/dl Hemoglobin A1c 5.2 % (4.5-5.6) Lactic Acid Level 1.6 mmol/L (0.4-2.0) Calcium Level 8.3 mg/dl (8.5-10.1) Phosphorus Level 2.9 mg/dl (2.5-4.9) Magnesium Level 2.1 mg/dl (1.8-2.4) Total Bilirubin 0.3 mg/dl (0.2-1) Direct Bilirubin < 0.1 mg/dl (0-0.2) Aspartate Amino Transf (AST/SGOT) 53 U/L (15-37) Alanine Aminotransferase (ALT/SGPT) 32 U/L (12-78) Alkaline Phosphatase 105 U/L (45-117) Total Creatine Kinase 1512 U/L (39-308) Troponin I < 0.015 ng/ml (0-0.045) Total Protein 7.0 gm/dl (6.4-8.2) Albumin 3.4 gm/dl (3.4-5.0) Bedside Glucose 135 mg/dl (70-99) Imaging MRI of the brain report and images were reviewed by myself and essentially unremarkable Impression This is a 37-year-old male who presented with acute encephalopathy and reports of generalized swelling that is resolved at the time of my examination. I don't have a good neurological explanation for the reports of generalized swelling. Acute mental status changes at this time sound more consistent with a metabolic or toxic etiology (such as drugs or medications). Considering that the patient' s mental status has recovered so quickly, I think it unlikely to be due to infectious etiology. In addition I think it is less likely to be secondary to a paraneoplastic syndrome which tends to be more progressive (the caveat to that is some paraneoplastic antibodies can start off subtle with more psychiatric changes that can be easy to miss.). Focal seizures could be considered in the differential for acute mental status changes, but my suspicion for seizures is low at this time. Plan Agree with sending off a paraneoplastic panel on CSF fluid if there is enough fluid available (since the patient did have a history of neuroendocrine tumor) EEG this morning to evaluate for possible seizure etiology for acute mental status changes. No additional neurological recommendations at this time. Thank you for allowing me to participate in this patient's care. No neurological barriers to discharge today if he remains at his neurological baseline.
--- NOTE | 2017-10-21 10:41 | EEG Procedure Note ---
EEG Procedure Note Date of Service Oct 21, 2017. Start / End Times Start Time: 9:29am End Time: 9:49am Referring Physician Krystina Pacheco History 37 year old male with acute encephalopathy. EEG for further evaluation of possible seizure etiology. Home Medication List Scheduled Doxycycline Hyclate (Doxycycline Hyclate), 100 MG PO BID Duloxetine HCl (Cymbalta), 30 MG PO BID Gabapentin (Neurontin), 400 MG PO QID Scheduled PRN Alprazolam (Xanax), 1 TAB PO UD PRN for Anxiety Ibuprofen (Midol), 200 MG PO UD PRN for Pain Zolpidem Tartrate (Ambien), 10 MG PO HS PRN for Sleep Inpatient Medication List Current Inpatient Medications Medications (Trade) Dose Ordered Sig/Angelito Route Start Time Stop Time Status Last Admin Dose Admin Ioversol (Optiray 320) 125 ml UD PRN IV 10/20/17 16:30 10/24/17 16:29 Acyclovir Sodium 700 mg/Dextrose 264 ml @ 265 mls/hr Q8H IV 10/21/17 04:00 10/30/17 19:59 10/21/17 03:39 265 MLS/HR Duloxetine HCl (Cymbalta Cap) 30 mg BID PO 10/20/17 21:00 11/19/17 20:59 10/21/17 07:54 30 MG Gabapentin (Neurontin Cap) 200 mg TID PO 10/20/17 21:00 11/19/17 20:59 10/21/17 07:54 200 MG Heparin Sodium (Porcine) (Heparin Sq 5000 Unit/0.5ml) 5,000 unit Q8H SQ 10/21/17 06:00 11/20/17 05:59 10/21/17 05:46 5,000 UNIT Sodium Chloride 1,000 ml @ 100 mls/hr Q10H IV 10/20/17 21:30 11/19/17 21:29 10/21/17 07:54 100 MLS/HR Pantoprazole Sodium 40 mg/ Syringe 10 ml @ 5 mls/min DAILY@1100 IV 10/21/17 11:00 11/20/17 10:59 Miscellaneous Information (Icu Protocol For Hyperglycemia) 1 ea PRN PRN N/A 10/20/17 19:45 1/6/18 19:44 Nicotine (Nicoderm Cq 21MG Patch) 1 patch QAM TD 10/21/17 09:00 11/20/17 08:59 10/21/17 09:15 1 PATCH Miscellaneous (Remove Nicoderm Patch) 1 ea HS N/A 10/21/17 21:00 2 20:59 Alprazolam (Xanax Tab) 1 mg QID PO 10/21/17 13:00 11/20/17 12:59 Description This is a 21 electrode EEG with a single channel dedicated to limited EKG. The electrodes were placed in accordance with the International 10-20 system. At the start of the recording the patient was in an awake state. The background was well organized and composed of symmetric mixed alpha and beta frequencies. There was a well formed symmetric moderate amplitude posterior dominant rhythm of 9-10Hz that was reactive to eye opening and closure. Hyperventilation was not done. Photic stimulation at various frequencies produced no abnormalities. There was no state changes or sleep transients. Interpretation This is a normal awake only routine EEG. There was no electrographic seizures or epileptiform discharges. Clinical Correlation A normal EEG does not rule out epilepsy if there is a strong clinical suspicion.
[2017-10-21] MEDS ORDERED: PANTOprazole INJ 40 MG in SYRINGE 0 ML IV SCH (11:00)
--- NOTE | 2017-10-21 11:15 | Progress Note ---
Progress Note Date of Service Oct 21, 2017. Progress Note ID Consult Dictated # [id number] A/P: 1. Leukocytosis - likely reactive -No signs on meningitis, ok to stop antimicrobials -No contraindication to d/c from ID standpoint.
--- NOTE | 2017-10-21 11:20 | INFECT. DISEASE CONSULTATION ---
DATE OF CONSULTATION: 10/21/2017 DATE OF CONSULTATION: 10/21/2017 HISTORY OF PRESENT ILLNESS: This is a 37-year-old gentleman who was admitted to the hospital after he had a change in mental status and swelling around his face and hands yesterday. Per the H&P, he has had worsening mental status decline for 2-3 days prior to admission and also had complained of visual diplopia as well as some intermittent headache. He does have a history of a neuroendocrine tumor, which resulted in a partial pancreatectomy and splenectomy 2 years prior. Per the H&P all vaccines were up to date at the time of his splenectomy. He does have a history of marijuana and Xanax use and his urine drug screen was positive for both benzos and marijuana in the Emergency Room. UA was negative. There was concern for meningitis in the Emergency Room yesterday and the patient underwent a CAT scan of the head as well as MRI of the brain, both of which were unremarkable and he also had LP done. This had 0 WBCs and no organisms. A rapid HIV was negative. Flu was negative. Phelps and strep were negative. A rapid strep culture is negative. Blood cultures were drawn and are pending. CSF culture showed no organisms but culture is pending. He also had a CAT scan of the chest, which showed some atelectasis and a 7.9 mm pulmonary nodule and recommendation for repeat imaging in the future. He did have a leukocytosis of 12.9. He was given a dose of vancomycin, Rocephin and Zosyn. These have been discontinued. He remains on acyclovir. He has been afebrile since admission. On my examination, he is awake, alert. He is talking to his family on the phone. He did have breakfast this morning. He denies any headaches or visual changes. He states he feels wonderful and is ready to be discharged to home. He states he did eat [employer] yesterday prior to this episode and he normally does not eat that, he feels that he had a reaction to food, but he denies any food allergies or the introduction of any new foods. The swelling has gone. He does not have any complaints of shortness of breath or wheezing. He has no chest pain, cough, nausea, vomiting, diarrhea or abdominal pain. His remaining review of systems is unremarkable. PAST SURGICAL AND SURGICAL HISTORY: Significant for lumbosacral radiculopathy, opioid dependence, pancreatic tumor, history of pancreatitis, scrotal varices, history of right femur fracture, splenectomy, pelvic fracture and pancreas surgery. FAMILY HISTORY: Noncontributory. SOCIAL HISTORY: Significant for daily tobacco use. He is engaged. He lives alone. He is unemployed. He does have a history of benzodiazepines and marijuana use. ALLERGIES: He has no known drug allergies. MEDICATIONS: Include nicotine patches, Xanax, Protonix, subQ heparin, acyclovir, Cymbalta, Neurontin. PHYSICAL EXAMINATION: VITAL SIGNS: He has been afebrile, pulse 69, respiratory rate 25, blood pressure 126/78, oxygen saturation is 94-100% on room air. GENERAL: He is awake, alert and oriented x3. He is in no acute distress. HEAD, EYES, EARS, NOSE, AND THROAT: Mucous membranes are moist. Extraocular muscles are intact. Dentition is poor. There is no nuchal rigidity. HEART: Regular. LUNGS: Clear bilaterally. ABDOMEN: Soft and nondistended. There is no lower extremity edema. SKIN: Without rash. He has multiple tattoos. LABORATORY STUDIES: CBC reveals a white blood cell count of 12.9, hemoglobin 13.2, platelets are 341. Chemistry panel reveals a sodium of 136, potassium 4.6, chloride 102, bicarbonate 32, BUN 5, creatinine 0.8, glucose is 135. LFTs show an AST that is mildly elevated at 53, ALT is normal at 32. Bilirubin is normal. Procalcitonin was negative. Urinalysis is negative. CSF again had 0 WBCs. Strep culture is pending. Rapid strep was negative. Blood cultures are pending. CSF culture is pending, but Gram stain is negative. IMAGING: As above. ASSESSMENT AND PLAN: Change in mental status. I doubt this is related to infectious etiology. His antibiotics have been discontinued. His LP is negative. His acyclovir can be discontinued as well, especially with a negative MRI. I do not see any contraindication to discharge from an infectious diseases standpoint.
[2017-10-21] MEDS ORDERED: DXY100 PO (11:53)
--- NOTE | 2017-10-21 11:55 | Discharge Instructions ---
Discharge Instructions Date of Service Oct 21, 2017. Admission Reason for Admission: Metabolic Encephalopathy Discharge Discharge Diagnosis / Problem: ENCEPHALOPATHY, NON TYPICAL PNEUMONIA Discharge Goals Goal(s): Diagnostic testing, Therapeutic intervention Activity Recommendations Activity Limitations: as noted below Lifting Limitations: gradually increase as tolerated . Current Hospital Diet Patient's current hospital diet: Regular Diet Discharge Diet Recommended Diet: Regular Diet Pending Studies Studies pending at discharge: no Laboratory Results Hemoglobin A1c Test 10/21/17 03:51 Range/Units Estimated Average Glucose 103 mg/dl Hemoglobin A1c 5.2 4.5-5.6 % Medical Emergencies . Who to Call and When: Medical Emergencies: If at any time you feel your situation is an emergency, please call 911 immediately. . Non-Emergent Contact Non-Emergency issues call your: Primary Care Provider Call Non-Emergent contact if: temperature is above 101, your pain is unusual for you . . "Provider Documentation" section prepared by Kenny Doherty. . VTE Core Measure Inpt VTE Proph given/why not?: SCD's
[2017-10-21] MEDS ORDERED: ALPRAZOLAM 0.5 MG TAB PO SCH (13:00)
--- NOTE | 2017-10-21 17:49 | Discharge Summary ---
Discharge Summary Date of Service Oct 21, 2017. Discharge Summary Admission Date: Oct 20, 2017 at 19:51 Discharge Date: Oct 21, 2017 Discharge Disposition: Home Principal Diagnosis: encephalopathy Problems/Secondary Diagnoses: (1) Femur fracture, right Status: Chronic (2) Opioid dependence Status: Chronic (3) Pelvic fracture Status: Chronic Discharge Exam Review of Systems: Constitutional: No fever, No chills, No weakness, No fatigue Abdomen: No pain, No nausea, No diarrhea, No constipation Physical Exam: General Appearance: WD/WN, no apparent distress Eyes: normal inspection, sclerae normal Neurologic/Psychiatric: alert, oriented x 3 Hospital Course 37 M presented with acute encephalopathy felt to be possibly toxic. He does use xanax and had a urine tox positive for BZD and THC. He was transiently intubated, did have a LP which was not remarkable and had negative influenza, mono, strep screens as well as non toxic carbon monoxide levels. Had a normal EEG as per Dr Kaba. CTA showed some atypical changes consistent with pneumonia, he was having some pre hospital shortness of breath. will be on 10 days of doxycycline. Will arrange pcp follow up for re evaluation of lung and for follow up as pt previously had a neuroendocrine tumor Total Time Spent: Greater than 30 minutes This includes examination of the patient, discharge planning, medication reconciliation, and communication with other providers. Discharge Instructions Please refer to the electronic Patient Visit Report (Discharge Instructions) for additional information.
[2017-10-24 13:34] LABS: EBV EARLY ANTIGEN AB < 9.00 U/ML
== END 2017-10-21 12:46 | disposition home or self-care (01) | DRG 91 ==
LOC: C.EDB 15:47 → C.MSICU 19:51 → ENRESERV 20:05
PROVIDERS: ADMIT Internal Medicine; ATTEND Internal Medicine
PROC: 0BH17EZ Insertion of Endotracheal Airway into Trachea, Via Natural or Artificial Opening (ICD-10-PCS; principal; 2017-10-20)
PROC: 009U3ZX Drainage of Spinal Canal, Percutaneous Approach, Diagnostic (ICD-10-PCS; principal; 2017-10-20)
PROC: 5A1935Z Respiratory Ventilation, Less than 24 Consecutive Hours (ICD-10-PCS; principal; 2017-10-20)
DX: G92 Toxic encephalopathy (principal); J18.9 Pneumonia, unspecified organism; D72.829 Elevated white blood cell count, unspecified; G89.29 Other chronic pain; F41.9 Anxiety disorder, unspecified; F32.9 Major depressive disorder, single episode, unspecified; F17.210 Nicotine dependence, cigarettes, uncomplicated; Z90.411 Acquired partial absence of pancreas; Z90.81 Acquired absence of spleen; Z86.03 Personal history of neoplasm of uncertain behavior; Z79.899 Other long term (current) drug therapy

== ENCOUNTER 2017-11-04 14:17 | Emergency (ER) | payer OTHER ==
[~2017-11-04] VITALS: Ht 175.3 cm; Wt 63.0 kg
[~2017-11-04 14:17] MED LIST changes: +CYM/30 PO; +DXY100 PO; +GABA400C PO; -OXYC1TAB3 PO; +ZOLP10TA PO
[2017-11-04 14:19] VITALS: TEMP 36.5; Ht 175.3 cm; Wt 63.0 kg
[2017-11-04] MEDS ORDERED: DULOXETINE (CYMBALTA) 30 MG CAP PO STA (14:40)
[2017-11-04] MEDS ORDERED: ALPRAZOLAM 0.5 MG TAB PO STA (14:40)
[2017-11-04] MEDS ORDERED: GABAPENTIN 400 MG CAP PO STA (14:40)
[2017-11-04] MEDS ORDERED: ALPR1TAB2 PO ×2 (14:58→17:22)
[2017-11-04] MEDS ORDERED: NRN/300 PO ×2 (14:58→17:22)
--- NOTE | 2017-11-04 14:59 | EMERGENCY ROOM VISIT NOTE ---
History Report prepared by Gómez: Kiera Cabrera Under the Supervision of: Dr. Daniel Mejias M.D. First contact with patient: 14:27 Chief Complaint: MENTAL HEALTH EVALUATION Stated Complaint: MENTAL HEALTH 201 History of Present Illness The patient is a 37 year old male who presents to the Emergency Room for a mental health evaluation. The patient was at [facility] today. While there, his therapist recommended that he come to the ED for further evaluation. Initially the patient refused and police were called. The patient was brought to the ED by his brother. He is voluntary at this time. The patient states that he has just been "missing my kids." His mother currently has full custody of his children. The patient should be getting full custody back in 4 days. The patient denies any thoughts of hurting himself. He denies SI or HI. He has a history of narcotic and illicit drug abuse. He states that he is no longer using drugs. He went to rehab and has been clean for 16 months. He states that his family has been accusing him of using drugs again. The patient thinks that his son has been stealing his daily medications which include Neurontin, Cymbalta, and Xanax--he has been flushing them down the toilet. The patient has not taken his usual medications for about 2-3 weeks. As a result the patient states that his anxiety his "through the roof" and he has not been sleeping. Source of History: patient Onset: SALES REP Position: other (mental health) Timing: worsening Modifying Factors (Worsening): other (family stress/medication noncompliance ) Note: Pt has been unable to sleep. Pt denies SI or HI. Review of Systems See HPI for pertinent positives & negatives. A total of 10 systems reviewed and were otherwise negative. Past Medical & Surgical Medical Problems: (1) Left lumbosacral radiculopathy (2) Lumbar radicular pain (3) Lumbar radicular pain (4) Metabolic encephalopathy (5) Opioid dependence (6) Pancreatic tumor (7) Pancreatitis (8) Pneumonia (9) Scrotal Varices Surgical Problems: (1) Femur fracture, right (2) H/O splenectomy (3) Pelvic fracture Family History Cancer Social History Smoking Status: Current Every Day Smoker Alcohol Use: occasionally Drug Use: marijuana Marital Status: single Housing Status: lives with significant other Occupation Status: unemployed Current/Historical Medications Scheduled Doxycycline Hyclate (Doxycycline Hyclate), 100 MG PO BID Duloxetine HCl (Cymbalta), 30 MG PO BID Duloxetine HCl (Cymbalta), 1 CAP PO BID Gabapentin (Neurontin), 300 MG PO QID Gabapentin (Neurontin), 1 CAP PO TID Scheduled PRN Alprazolam (Xanax), 1 MG PO QID PRN for Pain Alprazolam (Xanax), 1 TAB PO QD PRN for Anxiety/Agitation Zolpidem Tartrate (Ambien), 10 MG PO HS PRN for Sleep Allergies Coded Allergies: No Known Allergies (Unverified , NONE, 10/20/17) Physical Exam Vital Signs Date Time Temp Pulse Resp B/P (MAP) Pulse Ox O2 Delivery O2 Flow Rate FiO2 11/04/17 17:29 70 16 138/78 100 11/04/17 16:16 70 16 138/78 100 Room Air 11/04/17 14:19 36.5 86 18 148/77 99 Room Air Physical Exam GENERAL: Patient is in no acute distress. HEENT: No acute trauma, normocephalic atraumatic, mucous membranes moist, no nasal congestion, no scleral icterus. NECK: No stridor, no adenopathy, no meningismus, trachea is midline. LUNGS: Clear to auscultation bilaterally, no wheeze, no rhonchi, breath sounds equal. HEART: Without murmurs gallops or rubs, regular rate and rhythm. ABDOMEN: Soft, nontender, bowel sounds positive, no hernias, no peritonitis. EXTREMITIES: No cyanosis or edema, full range of motion of all the joints without pain or difficulty, no signs for acute trauma. NEUROLOGIC: Oriented x 3, no acute motor or sensory deficits, no focal weakness. SKIN: No rash, no jaundice, no diaphoresis. PSYCH: Agitated but cooperative, denies being suicidal or homicidal, complaining of having his medications stolen. Medical Decision & Procedures Laboratory Results 11/04/17 15:09 11/04/17 15:09 Test 11/04/17 14:33 11/04/17 15:09 Urine Color DK YELLOW Urine Appearance CLEAR (CLEAR) Urine pH 5.0 (4.5-7.5) Urine Specific [place] 1.025 (1.000-1.030) Urine Protein TRACE (NEG) Urine Glucose (UA) NEG (NEG) Urine Ketones TRACE (NEG) Urine Occult Blood NEG (NEG) Urine Nitrite NEG (NEG) Urine Bilirubin NEG (NEG) Urine Urobilinogen NEG (NEG) Urine Leukocyte Esterase TRACE (NEG) Urine WBC (Auto) 1-5 /hpf (0-5) Urine RBC (Auto) 0-4 /hpf (0-4) Urine Hyaline Casts (Auto) 10-30 /lpf (0-5) Urine Epithelial Cells (Auto) 20-30 /lpf (0-5) Urine Bacteria (Auto) NEG (NEG) Urine Pathogenic Casts /lpf (0) Urine Opiates Screen NEG (NEG) Urine Methadone, Qualitative NEG (NEG) Urine Barbiturates NEG (NEG) Urine Phencyclidine (PCP) Level NEG (NEG) Ur Amphetamine/Methamphetamine POS (NEG) MDMA (Ecstasy) Screen POS (NEG) Urine Benzodiazepines Screen POS (NEG) Urine Cocaine Metabolite NEG (NEG) Urine Marijuana (THC) POS (NEG) Red Blood Count 4.16 M/uL (4.7-6.1) Mean Corpuscular Volume 92.5 fL (80-100) Mean Corpuscular Hemoglobin 32.2 pg (25-34) Mean Corpuscular Hemoglobin Concent 34.8 g/dl (32-36) RDW Standard Deviation 43.2 fL (36.4-46.3) RDW Coefficient of Variation 12.8 % (11.5-14.5) Mean Platelet Volume 11.2 fL (7.4-10.4) Anion Gap 8.0 mmol/L (3-11) Est Creatinine Clear Calc Drug Dose 81.1 ml/min Estimated GFR () 98.2 Estimated GFR (Non- 84.7 BUN/Creatinine Ratio 14.9 (10-20) Calcium Level 9.5 mg/dl (8.5-10.1) Total Bilirubin 0.5 mg/dl (0.2-1) Aspartate Amino Transf (AST/SGOT) 20 U/L (15-37) Alanine Aminotransferase (ALT/SGPT) 24 U/L (12-78) Alkaline Phosphatase 96 U/L (45-117) Total Protein 7.8 gm/dl (6.4-8.2) Albumin 3.8 gm/dl (3.4-5.0) Globulin 4.0 gm/dl (2.5-4.0) Albumin/Globulin Ratio 1.0 (0.9-2) Thyroid Stimulating Hormone (TSH) 0.281 uIu/ml (0.300-4.500) Free Thyroxine 1.03 ng/dl (0.80-1.60) Acetaminophen Level < 2 ug/ml (10-30) Ethyl Alcohol mg/dL < 3.0 mg/dl (0-3) Laboratory results reviewed by me. Medications Administered Medications (Trade) Dose Ordered Sig/Angelito Route Start Time Stop Time Status Last Admin Dose Admin Alprazolam (Xanax Tab) 1 mg NOW STAT PO 11/04/17 14:40 11/04/17 14:43 DC 11/04/17 15:05 1 MG Gabapentin (Neurontin Cap) 400 mg NOW STAT PO 11/04/17 14:40 11/04/17 14:43 DC 11/04/17 14:58 400 MG Duloxetine HCl (Cymbalta Cap) 30 mg NOW STAT PO 11/04/17 14:40 11/04/17 14:43 DC 11/04/17 14:58 30 MG ED Course 1427: The patient was evaluated in room A8. A complete history and physical exam was performed. 1440: Cymbalta 30 mg PO, Neurontin 400 mg PO, Xanax 1 mg PO 1713: I reassessed the patient at this time. He continues to deny any SI or HI. Per the psychiatric liaison the patient does not meet criteria for admission. I discussed the results and treatment plan with the patient. I answered all pertaining questions that he had. He expressed understanding and verbalized agreement. The patient will be discharged home. Medical Decision Differential diagnoses includes SI or HI, electrolyte imbalance, anemia, thyroid disorder, drug or alcohol abuse, medication non compliance. There is a moderate leukocytosis, this could be consistent with infection or just the stress of his current situation. No concerning anemia. No significant electrolyte abnormality, kidney failure or hepatitis. The patient does appear to be in a euthyroid state. Urinalysis does not show infection. Aspirin, Tylenol and alcohol levels were undetectable. Urine tox shows ecstasy , marijuana, benzos and methamphetamine. The patient received his typical doses of Cymbalta and Neurontin orally. He was given his typical dose of oral Xanax. The patient is improved, he is resting comfortably. He denies homicidal or suicidal ideation. He was seen at length by the psychiatric case management team, there is no 302 admission criteria. The patient does not want to stay voluntarily. Our Psychiatric case mgr was in touch with his counselors at [facility]. The patient is adamant that he is not homicidal or suicidal. He is not going to hurt himself because he cares too much for his kids. He has been cooperative during his stay. I have agreed to discharge him with a few Xanax and a week's worth of his typical medications as he swears that the meds were discarded by his family. He will need to get further prescriptions through [facility]. I do think he seems better when taking his medications-this was demonstrated here. The patient can return for worsening symptoms. He was discharged in the custody of his significant other. [place] Drug Monitoring [place] Search Results: patient reviewed within database Drug Monitoring Findings: Pt had 120 tablets of Xanax prescribed on 08/24/17. Medication Reconcilliation Current Medication List: was personally reviewed by me Blood Pressure Screening Patient's blood pressure: Elevated blood pressure Blood pressure disposition: Elevated BP felt to be situational Impression Primary Impression: Mental health-related complaint Scribe Attestation The scribe's documentation has been prepared under my direction and personally reviewed by me in its entirety. I confirm that the note above accurately reflects all work, treatment, procedures, and medical decision making performed by me. Departure Information Dispostion Home / Self-Care Prescriptions Gabapentin (NEURONTIN) 300 Mg Cap 1 CAP PO TID for 7 Days, #21 CAP 3 Refills Prov: Daniel Mejias M.D. 11/04/17 Duloxetine HCl (Cymbalta) 30 Mg Cap 1 CAP PO BID for 7 Days, #14 CAP 1 Refill Prov: Daniel Mejias M.D. 11/04/17 Alprazolam (XANAX) 1 Mg Tab 1 TAB PO QD Y for Anxiety/Agitation for 7 Days, #7 TAB Prov: Daniel Mejias M.D. 11/04/17 Referrals No Doctor, Assigned (PCP) Forms HOME CARE DOCUMENTATION FORM, IMPORTANT VISIT INFORMATION Patient Instructions My [facility] Additional Instructions meds as prescribed I have written for 1 week of your meds, you will need to see [facility] for further prescriptions return for worsening symptoms or if feeling suicidal
[2017-11-04 15:24] LABS: HEMATOCRIT 38.5 % (42-52); HEMOGLOBIN 13.4 g/dL (14.0-18.0); MEAN CELL VOLUME 92.5 fL (80-100); MEAN CORPUSCULAR HEMOGLOBIN 32.2 pg (25-34); MEAN CORPUSCULAR HGB CONC 34.8 g/dl (32-36); MEAN PLATELET VOLUME 11.2 fL (7.4-10.4); PLATELET COUNT 411 K/uL (130-400); RED CELL DISTRIBUTION WIDTH CV 12.8 % (11.5-14.5); RED CELL DISTRIBUTION WIDTH SD 43.2 fL (36.4-46.3); WHITE BLOOD COUNT 16.14 K/uL (4.8-10.8)
[2017-11-04 15:43] LABS: ALBUMIN 3.8 gm/dl (3.4-5.0); CALCIUM 9.5 mg/dl (8.5-10.1); CREATININE 1.1 mg/dl (0.60-1.40); POTASSIUM 4.7 mmol/L (3.5-5.1)
[2017-11-04 15:54] LABS: TOTAL PROTEIN 7.8 gm/dl (6.4-8.2)
[2017-11-04] MEDS ORDERED: CYM/30 PO (17:22)
[2017-11-04 17:29] VITALS: BP 138/78; PULSE 70; O2SAT 100
--- NOTE | 2017-11-04 18:08 | EMERGENCY ROOM VISIT NOTE ---
ED Visit Note First contact with patient: 14:27 I did receive a call from the patient's pharmacy. The patient apparently had a prescription of Xanax filled on October 28. This prescription had not shown up on my PDMP search. I talked things over with the pharmacist. Apparently, the patient has presented police paperwork showing that his medications were stolen. There also is concern that the patient's family is discarding his medications. After talking with the pharmacist at length, I do think it would be reasonable to prescribe just 7 Xanax tabs. Withdrawal from benzos can be life- threatening. The patient will need to get this all worked out with the police and with his doctors offices. Further prescriptions for controlled substances through the emergency room will be very limited.
== END 2017-11-04 17:30 | disposition home or self-care (01) ==
LOC: C.EDB 14:18 → C.EDA 17:30
DX: Z00.8 Encounter for other general examination (principal); F17.200 Nicotine dependence, unspecified, uncomplicated; F12.90 Cannabis use, unspecified, uncomplicated

== ENCOUNTER 2017-11-07 12:43 | Emergency (ER) | payer OTHER ==
[~2017-11-07] VITALS: Ht 175.3 cm; Wt 62.9 kg
[~2017-11-07 12:43] MED LIST changes: -ALPR-411 PO; +ALPR1TAB2 PO; -GABA400C PO; -IBUP1CAP PO; +NRN/300 PO
[2017-11-07 12:47] VITALS: TEMP 36.8; Ht 175.3 cm; Wt 62.9 kg
[2017-11-07] MEDS ORDERED: IBUP1CAP9 PO (13:36)
[2017-11-07 14:41] VITALS: BP 109/74; PULSE 60; O2SAT 98
[2017-11-07] MEDS ORDERED: ATIVAN 1MG HOMEPACK PO ONE (14:45)
--- NOTE | 2017-11-07 17:34 | EMERGENCY ROOM VISIT NOTE ---
History First contact with patient: 13:08 Chief Complaint: MEDICATION REFILL REQUEST Stated Complaint: MEDICATION REFILL History of Present Illness The patient is a 37 year old male who presents to the Emergency Room requesting a prescription refill of his psychiatric medications. The patient reports that he was just here 3 days ago after family members throughout his medications. The patient reports filing a police report. He received a prescription for additional medications when he was here on Tuesday, and reports that family members discarded the medications again. The patient reports that he is currently fighting to get custody of his children. The patient follows with [facility]. He reports that he has not contacted them since his last ED visit. The patient reports that he was admitted earlier this month for pneumonia, but did not follow-up with his PCP after discharge from our facility. The patient denies any suicidal or homicidal thoughts at this time. Review of Systems HEENT: Denies dizziness, visual problems, hearing loss, tinnitus. Denies difficulty swallowing or oral lesions. PULMONARY: Denies cough, shortness of breath, sputum production or hemoptysis. CARDIOVASCULAR: Denies chest pain, palpitations, dyspnea on exertion, orthopnea or peripheral edema. GASTROINTESTINAL: Denies diarrhea, constipation, nausea, vomiting, or abdominal pain. GENITOURINARY: Denies dysuria, frequency, urgency or nocturia. NEUROLOGIC: Denies history of epilepsy, CVA, TIA or chronic headaches. MUSCULOSKELETAL: Denies history of joint tenderness/swelling. SKIN: Denies rashes or lesions. PSYCHIATRIC: Denies history of depression or mental illness. ENDOCRINE: Denies history of diabetes or thyroid disorders. Past Medical/Surgical History Medical Problems: (1) Left lumbosacral radiculopathy (2) Lumbar radicular pain (3) Lumbar radicular pain (4) Metabolic encephalopathy (5) Opioid dependence (6) Pancreatic tumor (7) Pancreatitis (8) Pneumonia (9) Scrotal Varices Surgical Problems: (1) Femur fracture, right (2) H/O splenectomy (3) Pelvic fracture Family History Cancer Social History Smoking Status: Current Every Day Smoker Alcohol Use: occasionally Drug Use: marijuana Marital Status: single Housing Status: lives with significant other Occupation Status: unemployed Current/Historical Medications Scheduled Duloxetine HCl (Cymbalta), 30 MG PO BID Gabapentin (Neurontin), 300 MG PO QID Ibuprofen (Ibuprofen), 600 MG PO UD Scheduled PRN Alprazolam (Xanax), 1 MG PO QID PRN for Anxiety Zolpidem Tartrate (Ambien), 10 MG PO HS PRN for Sleep Physical Exam Vital Signs Date Time Temp Pulse Resp B/P (MAP) Pulse Ox O2 Delivery O2 Flow Rate FiO2 11/07/17 14:41 60 18 109/74 98 Room Air 11/07/17 12:47 36.8 65 18 121/77 98 Room Air Physical Exam CONSTITUTIONAL: Healthy and well nourished. Alert and oriented X 3. PSYCHIATRIC: The patient is pleasant and engages in conversation. The patient certainly attempts to present me with a business card of the police or patrol park officer that he reportedly spoke with regarding is medications. HEENT: Normocephalic, atraumatic. Pupils equal, round and reactive. NECK: Full active range of motion without discomfort. RESPIRATORY: Clear to auscultation bilaterally with no wheezing, crackles, rhonchi or stridor. CARDIOVASCULAR: Regular rate and rhythm with no murmurs, rubs or gallops. GASTROINTESTINAL: Bowel sounds present in all quadrants. MUSCULOSKELETAL: Full range of motion of all joints without discomfort. INTEGUMENTARY: No rash or other significant dermatologic conditions noted. NEUROLOGIC: No focal neurologic deficits noted. Medical Decision & Procedures ED Course Patient history and physical exam were performed. Nurse's notes were reviewed. Vital signs were reviewed and were normal. The patient reports that his family has discarded his medications yet again. I did review documentation from the patient's visit here on 11/07/17. It is noted that the patient takes daily Neurontin, Cymbalta and Xanax. It is noted that the patient was provided prescriptions for 7 days supply of his Cymbalta and Neurontin, and provided a prescription for 7 Xanax tablets. It is also noted that the patient's pharmacy called to advise 80 staff that the patient had a prescription of Xanax filled on 10/28/17 that did not show up in the [place] Prescription Drug Monitoring program. I ask went to the patient denied do not feel comfortable providing any further prescriptions for Xanax. It is noted that he did get refills on his Cymbalta and Neurontin. The case was then further discussed with our psychiatric cyanide case hardener, who also interviewed the patient and determined that he actually has appointments scheduled at [facility] tomorrow at noon time. He also has a point with his PCP, Dr. Kemp at 8:30 AM. I also discussed the case further with Dr. Salazar, ED attending physician, who suggested providing a home pack of benzodiazepines, and no prescriptions. The patient will therefore be provided a home pack of 4 Ativan 1 mg tablets. The patient was advised that he must discuss any further prescription management through [facility] or his PCP. He was advised that the emergency department would not provide any further benzodiazepine prescriptions. The patient voiced understanding, and was happy with plan of care. Medical Decision [place] Drug Monitoring Program Search Results: patient reviewed within database Medication Reconcilliation Current Medication List: was personally reviewed by [facility] Blood Pressure Screening Patient's blood pressure: Normal blood pressure Impression Primary Impression: Prescription requested Additional Impression: Mental health-related complaint Departure Information Dispostion Home / Self-Care Condition GOOD Forms HOME CARE DOCUMENTATION FORM, IMPORTANT VISIT INFORMATION Patient Instructions My [facility] Additional Instructions Follow-up tomorrow with your family doctor and [facility]. Any further prescription management must be provided by your family doctor or [facility]. The emergency department will not provide any further prescriptions or home packs of your benzodiazepines. Problem Qualifiers
== END 2017-11-07 15:04 | disposition home or self-care (01) ==
LOC: C.EDB 12:44 → C.EDD 15:04
DX: Z76.0 Encounter for issue of repeat prescription (principal); M54.17 Radiculopathy, lumbosacral region; G93.41 Metabolic encephalopathy; K85.90 Acute pancreatitis without necrosis or infection, unspecified; Z87.01 Personal history of pneumonia (recurrent); I86.1 Scrotal varices; Z80.9 Family history of malignant neoplasm, unspecified; F17.210 Nicotine dependence, cigarettes, uncomplicated; Z79.899 Other long term (current) drug therapy

== ENCOUNTER 2017-12-02 09:52 | Emergency (ER) | payer OTHER ==
[~2017-12-02] VITALS: Ht 175.3 cm; Wt 63.0 kg
[~2017-12-02 09:52] MED LIST changes: -DXY100 PO; +IBUP1CAP9 PO
[2017-12-02 10:02] VITALS: TEMP 36.7; Ht 175.3 cm; Wt 63.0 kg
[2017-12-02] MEDS ORDERED: SODIUM CHLORIDE 0.9% 1000ML 1,000 ML IV STA (11:03)
[2017-12-02] MEDS ORDERED: ONDANSETRON INJ 2 MG/ML 2 ML VIAL IV STA (11:03)
[2017-12-02] MEDS ORDERED: MoRPHine SULFATE 4 MG/ML 1 ML CARP\\VIAL IV STA ×2 (11:03→12:23)
[2017-12-02 11:29] LABS: BASO % 0.3 %; BASO ABS # 0.03 K/uL (0-0.2); EOS % 1.5 %; EOS ABS # 0.13 K/uL (0-0.5); HEMATOCRIT 38.7 % (42-52); HEMOGLOBIN 13.5 g/dL (14.0-18.0); IG# 0.03 K/uL (0.00-0.02); LYMPH % 37.6 %; LYMPH ABS # 3.35 K/uL (1.2-3.4); MEAN CELL VOLUME 91.9 fL (80-100); MEAN CORPUSCULAR HEMOGLOBIN 32.1 pg (25-34); MEAN CORPUSCULAR HGB CONC 34.9 g/dl (32-36); MEAN PLATELET VOLUME 11.1 fL (7.4-10.4); MONO % 11.6 %; MONO ABS # 1.03 K/uL (0.11-0.59); NEUT % 48.7 %; NEUT ABS # 4.34 K/uL (1.4-6.5); PLATELET COUNT 331 K/uL (130-400); RED CELL DISTRIBUTION WIDTH CV 13.1 % (11.5-14.5); RED CELL DISTRIBUTION WIDTH SD 43.8 fL (36.4-46.3); WHITE BLOOD COUNT 8.91 K/uL (4.8-10.8)
--- NOTE | 2017-12-02 11:36 | DIAGNOSTIC IMAGING REPORT ---
CHEST ONE VIEW PORTABLE CLINICAL HISTORY: 37 years-old Male presenting with epigastric abd pain. TECHNIQUE: Portable upright AP view of the chest was obtained. COMPARISON: 10/20/2017. FINDINGS: There has been interval extubation. Cardiac mediastinal silhouette normal. Mild bronchial wall thickening. Lungs and pleural spaces clear. Osseous structures normal. Upper abdomen normal. IMPRESSION: 1. Mild bronchial wall thickening could suggest bronchitis or reactive airways. No focal infiltrate to suggest pneumonia. Electronically signed by: Michael Borden M.D. 12/02/2017 11:34 AM Dictated Date/Time: 12/02/2017 11:33 AM
[2017-12-02 11:38] VITALS: O2SAT 97
[2017-12-02 11:43] LABS: PTT PATIENT 24.7 SECONDS (21.0-31.0)
[2017-12-02 11:44] LABS: ALBUMIN 3.6 gm/dl (3.4-5.0); ALT/SGPT 18 U/L (12-78); AST/SGOT 13 U/L (15-37); BLOOD UREA NITROGEN 15 mg/dl (7-18); CALCIUM 8.8 mg/dl (8.5-10.1); CARBON DIOXIDE 28 mmol/L (21-32); CREATININE 0.88 mg/dl (0.60-1.40); GLUCOSE 96 mg/dl (70-99); LIPASE 98 U/L (73-393); SODIUM 140 mmol/L (136-145)
[2017-12-02 11:53] LABS: ALKALINE PHOSPHATASE 107 U/L (45-117); CKMB 1.1 ng/ml (0.5-3.6); TOTAL PROTEIN 7.4 gm/dl (6.4-8.2)
--- NOTE | 2017-12-02 12:15 | DIAGNOSTIC IMAGING REPORT ---
GALLBLADDER-ABD LIMITED CLINICAL HISTORY: Epigastric abd pain pain. Nausea. TECHNIQUE: Ultrasound COMPARISON STUDY: None FINDINGS: Normal gallbladder. No shadowing gallstones. Common bile duct 4 mm. Pancreas is uniform. Right kidney is negative for hydronephrosis. IMPRESSION: Normal study. The above report was generated using voice recognition software. It may contain grammatical, syntax or spelling errors. Electronically signed by: Eldon Glaser M.D. 12/02/2017 12:13 PM Dictated Date/Time: 12/02/2017 12:12 PM
--- NOTE | 2017-12-02 12:19 | EMERGENCY ROOM VISIT NOTE ---
History First contact with patient: 10:50 Chief Complaint: ABDOMINAL PAIN Stated Complaint: ABDOMINAL PAIN Nursing Triage Summary: Pain in the epigastric region. History of Present Illness The patient is a 37 year old male who presents to the Emergency Room via private vehicle with complaints of "abdominal pain". The patient states he has pain in the epigastric region. 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 He also states he was recently here and diagnosed with what he believes was pneumonia, but does not recall the event. He states that he feels as though he is dying. He states that the pain is becoming unbearable in his epigastric region. He rates the overall pain as an 8 /10. He states that he is also feeling lightheaded and dizzy. He states that he saw his family doctor yesterday. Review of Systems A complete 10-point Review of Systems was discussed with the patient, with pertinent positives and negatives listed in the History of Present Illness. All remaining Review of Systems questions can be considered negative unless otherwise specified. Past Medical/Surgical History Medical Problems: (1) Left lumbosacral radiculopathy (2) Lumbar radicular pain (3) Lumbar radicular pain (4) Metabolic encephalopathy (5) Opioid dependence (6) Pancreatic tumor (7) Pancreatitis (8) Pneumonia (9) Scrotal Varices Surgical Problems: (1) Femur fracture, right (2) H/O splenectomy (3) Pelvic fracture Family History Cancer Social History Smoking Status: Current Every Day Smoker Alcohol Use: occasionally Drug Use: marijuana Marital Status: single Housing Status: lives with significant other Occupation Status: unemployed Current/Historical Medications Scheduled Acetaminophen Tab (Tylenol), 650 MG PO DIRECTED Duloxetine HCl (Cymbalta), 30 MG PO BID Famotidine (Pepcid), 1 TAB PO BID Gabapentin (Neurontin), 400 MG PO TID Ibuprofen (Ibuprofen), 400 MG PO UD Pantoprazole Sodium (Protonix), 20 MG PO DAILY Scheduled PRN Alprazolam (Xanax), 1-2 MG PO DAILY PRN for Anxiety Ondansetron Hcl (Zofran), 8 MG PO TID PRN for Nausea Zolpidem Tartrate (Ambien), 10 MG PO HS PRN for Sleep Physical Exam Vital Signs Date Time Temp Pulse Resp B/P (MAP) Pulse Ox O2 Delivery O2 Flow Rate FiO2 12/02/17 16:10 62 22 137/76 98 Room Air 12/02/17 14:05 77 22 137/90 98 Room Air 12/02/17 13:34 53 16 139/91 100 Room Air 12/02/17 12:43 48 14 132/77 98 Room Air 12/02/17 12:11 49 12 132/78 98 Room Air 12/02/17 12:11 54 12/02/17 11:38 97 Room Air 12/02/17 11:38 56 16 115/80 96 Room Air 12/02/17 10:02 36.7 66 20 112/73 97 Room Air Physical Exam VITAL SIGNS - Vital signs and nursing notes were reviewed. Stable. GENERAL -37-year-old male appearing his stated age who is in no acute distress. Communicates well with provider and answers questions appropriately. SKIN - numerous excoriations noted to the dorsal aspect of the patient's hands. HEAD - NC/AT. EYES - PERRL with EOMI bilaterally. Sclera anicteric. EARS - No deformities of external structures noted on gross examination bilaterally. No pain elicited with palpation of the tragus bilaterally. External auditory canals without discharge or otorrhea. Tympanic membranes pearly serna without retraction or bulging. No fluid or purulent material visualized behind the TM. Handle of malleus, umbo, cone of light, pars tensa/ flaccid all easily visualized. NOSE - Midline and without cyanosis. No epistaxis or purulent drainage noted. MOUTH/OROPHARYNX - Without perioral cyanosis. NECK - Neck with FROM. No meningismus. LUNGS - Chest wall symmetric without accessory muscle use, intercostals retractions, or central cyanosis. Normal vesicular breath sounds CTA B/L. No wheezes, rales, or rhonchi appreciated. CARDIAC - RRR with S1/S2. No murmur, rubs, or gallops appreciated. ABDOMEN - Abdominal contour normal without pulsations or visible masses. BS normoactive all four quadrants. Tenderness noted in the epigastric region. NEUROLOGIC - Cranial nerves II through XII grossly intact. Sensory intact to light touch throughout. Patellar reflexes +2/4. PSYCH - A&O, and cooperates fully with examiner. Pt is very pleasant and interacts well with examiner. Medical Decision & Procedures ER Provider Diagnostic Interpretation: [~ rep ct add3]] CHEST ONE VIEW PORTABLE CLINICAL HISTORY: 37 years-old Male presenting with epigastric abd pain. TECHNIQUE: Portable upright AP view of the chest was obtained. COMPARISON: 10/20/2017. FINDINGS: There has been interval extubation. Cardiac mediastinal silhouette normal. Mild bronchial wall thickening. Lungs and pleural spaces clear. Osseous structures normal. Upper abdomen normal. IMPRESSION: 1. Mild bronchial wall thickening could suggest bronchitis or reactive airways. No focal infiltrate to suggest pneumonia. Electronically signed by: Michael Borden M.D. 12/02/2017 11:34 AM Dictated Date/Time: 12/02/2017 11:33 AM GALLBLADDER-ABD LIMITED CLINICAL HISTORY: Epigastric abd pain pain. Nausea. TECHNIQUE: Ultrasound COMPARISON STUDY: None FINDINGS: Normal gallbladder. No shadowing gallstones. Common bile duct 4 mm. Pancreas is uniform. Right kidney is negative for hydronephrosis. IMPRESSION: Normal study. The above report was generated using voice recognition software. It may contain grammatical, syntax or spelling errors. Electronically signed by: Eldon Glaser M.D. 12/02/2017 12:13 PM Dictated Date/Time: 12/02/2017 12:12 PM [~ rep ct add3]] ABD/PELVIS IV CONTRAST ONLY CT DOSE: 351.26 mGycm HISTORY: Pain. Nausea. Epigastric abd pain TECHNIQUE: Multiaxial CT images of the abdomen and pelvis were performed following the use of intravenous contrast. A dose lowering technique was utilized adhering to the principles of ALARA. COMPARISON STUDY: 07/10/2016 FINDINGS: Minimal bibasilar platelike atelectasis. Liver is uniform. Stable postoperative changes of the a partial distal pancreatic resection. Slight fullness of the residual pancreatic tail and body. Nonobstructive bowel pattern. Kidneys enhance uniformly. No evidence for hydronephrosis. Bladder is midline. No free fluid within the pelvic cul-de-sac. IMPRESSION: 1. Slight fullness of the residual pancreatic tail and pancreatic body. 2. Correlation with pancreatic enzymes status is suggested. 3. Remainder of the study is unremarkable. The above report was generated using voice recognition software. It may contain grammatical, syntax or spelling errors. Electronically signed by: Eldon Glaser M.D. 12/02/2017 1:12 PM Dictated Date/Time: 12/02/2017 1:05 PM Laboratory Results 12/02/17 11:20 Red Blood Count 4.21, Mean Corpuscular Volume 91.9, Mean Corpuscular Hemoglobin 32.1, Mean Corpuscular Hemoglobin Concent 34.9, Mean Platelet Volume 11.1, Neutrophils (%) (Auto) 48.7, Lymphocytes (%) (Auto) 37.6, Monocytes (%) (Auto) 11.6, Eosinophils (%) (Auto) 1.5, Basophils (%) (Auto) 0.3, Neutrophils # (Auto ) 4.34, Lymphocytes # (Auto) 3.35, Monocytes # (Auto) 1.03, Eosinophils # (Auto ) 0.13, Basophils # (Auto) 0.03 12/02/17 11:20 Test 12/02/17 11:15 12/02/17 11:20 Urine Color DK YELLOW Urine Appearance CLEAR (CLEAR) Urine pH 5.5 (4.5-7.5) Urine Specific [place] 1.028 (1.000-1.030) Urine Protein NEG (NEG) Urine Glucose (UA) NEG (NEG) Urine Ketones TRACE (NEG) Urine Occult Blood NEG (NEG) Urine Nitrite NEG (NEG) Urine Bilirubin NEG (NEG) Urine Urobilinogen NEG (NEG) Urine Leukocyte Esterase TRACE (NEG) Urine WBC (Auto) 1-5 /hpf (0-5) Urine RBC (Auto) 0-4 /hpf (0-4) Urine Hyaline Casts (Auto) 1-5 /lpf (0-5) Urine Epithelial Cells (Auto) 10-20 /lpf (0-5) Urine Bacteria (Auto) NEG (NEG) Urine Opiates Screen NEG (NEG) Urine Methadone, Qualitative NEG (NEG) Urine Barbiturates NEG (NEG) Urine Phencyclidine (PCP) Level NEG (NEG) Ur Amphetamine/Methamphetamine NEG (NEG) MDMA (Ecstasy) Screen NEG (NEG) Urine Benzodiazepines Screen POS (NEG) Urine Cocaine Metabolite NEG (NEG) Urine Marijuana (THC) NEG (NEG) White Blood Count 8.91 K/uL (4.8-10.8) Red Blood Count 4.21 M/uL (4.7-6.1) Hemoglobin 13.5 g/dL (14.0-18.0) Hematocrit 38.7 % (42-52) Mean Corpuscular Volume 91.9 fL (80-100) Mean Corpuscular Hemoglobin 32.1 pg (25-34) Mean Corpuscular Hemoglobin Concent 34.9 g/dl (32-36) Platelet Count 331 K/uL (130-400) Mean Platelet Volume 11.1 fL (7.4-10.4) Neutrophils (%) (Auto) 48.7 % Lymphocytes (%) (Auto) 37.6 % Monocytes (%) (Auto) 11.6 % Eosinophils (%) (Auto) 1.5 % Basophils (%) (Auto) 0.3 % Neutrophils # (Auto) 4.34 K/uL (1.4-6.5) Lymphocytes # (Auto) 3.35 K/uL (1.2-3.4) Monocytes # (Auto) 1.03 K/uL (0.11-0.59) Eosinophils # (Auto) 0.13 K/uL (0-0.5) Basophils # (Auto) 0.03 K/uL (0-0.2) RDW Standard Deviation 43.8 fL (36.4-46.3) RDW Coefficient of Variation 13.1 % (11.5-14.5) Immature Granulocyte % (Auto) 0.3 % Immature Granulocyte # (Auto) 0.03 K/uL (0.00-0.02) Prothrombin Time 10.0 SECONDS (9.0-12.0) Prothromb Time International Ratio 1.0 (0.9-1.1) Activated Partial Thromboplast Time 24.7 SECONDS (21.0-31.0) Partial Thromboplastin Ratio 1.0 Anion Gap 5.0 mmol/L (3-11) Est Creatinine Clear Calc Drug Dose 101.4 ml/min Estimated GFR () 126.3 Estimated GFR (Non- 109.0 BUN/Creatinine Ratio 17.7 (10-20) Calcium Level 8.8 mg/dl (8.5-10.1) Magnesium Level 2.2 mg/dl (1.8-2.4) Total Bilirubin 0.4 mg/dl (0.2-1) Aspartate Amino Transf (AST/SGOT) 13 U/L (15-37) Alanine Aminotransferase (ALT/SGPT) 18 U/L (12-78) Alkaline Phosphatase 107 U/L (45-117) Total Creatine Kinase 99 U/L (39-308) Creatine Kinase MB 1.1 ng/ml (0.5-3.6) Creatine Kinase MB Ratio 1.1 (0-3.0) Troponin I < 0.015 ng/ml (0-0.045) Total Protein 7.4 gm/dl (6.4-8.2) Albumin 3.6 gm/dl (3.4-5.0) Globulin 3.8 gm/dl (2.5-4.0) Albumin/Globulin Ratio 0.9 (0.9-2) Amylase Level 26 U/L (25-115) Lipase 98 U/L (73-393) Thyroid Stimulating Hormone (TSH) 0.436 uIu/ml (0.300-4.500) Medications Administered Medications (Trade) Dose Ordered Sig/Angelito Route Start Time Stop Time Status Last Admin Dose Admin Sodium Chloride 1,000 ml @ 999 mls/hr Q1H1M STAT IV 12/02/17 11:03 12/02/17 12:03 DC 12/02/17 11:25 999 MLS/HR Morphine Sulfate (MoRPHine SULFATE INJ) 4 mg NOW STAT IV 12/02/17 11:03 12/02/17 11:05 DC 12/02/17 11:26 4 MG Ondansetron HCl (Zofran Inj) 4 mg NOW STAT IV 12/02/17 11:03 12/02/17 11:05 DC 12/02/17 11:25 4 MG Morphine Sulfate (MoRPHine SULFATE INJ) 4 mg NOW STAT IV 12/02/17 12:23 12/02/17 12:25 DC 12/02/17 12:43 4 MG Alprazolam (Xanax Tab) 1 mg NOW STAT PO 12/02/17 12:27 12/02/17 12:28 DC 12/02/17 12:42 1 MG Hydromorphone HCl (Dilaudid Inj) 0.5 mg NOW STAT IV 12/02/17 13:40 12/02/17 13:41 DC 12/02/17 14:05 0.5 MG Famotidine (Pepcid 20mg Iv Push) 20 mg ONE STAT IV 12/02/17 14:20 12/02/17 14:22 DC 12/02/17 14:20 20 MG Pantoprazole Sodium 40 mg/ Syringe 10 ml @ 5 mls/min NOW STAT IV 12/02/17 14:20 12/02/17 14:22 DC 12/02/17 14:20 5 MLS/MIN Miscellaneous Medication (Gi Cocktail) 24 ml NOW STAT PO 12/02/17 14:20 12/02/17 14:22 DC 12/02/17 14:20 24 ML Hydromorphone HCl (Dilaudid Inj) 2 mg NOW STAT IV 12/02/17 14:20 12/02/17 14:22 DC 12/02/17 14:20 2 MG Medical Decision Patient was seen and evaluated as above. He presents to us today with epigastric abdominal pain he is nontoxic on exam. Vital signs are stable. IV access was initiated, and the above workup was performed. He was given morphine for pain as well as Zofran. He was also given fluids. He is reevaluated and noted that his pain was continuing. He did have an ultrasound of the right upper quadrant region as well as chest x-ray. Essentially no acute process however there may be perhaps small bronchial thickening. He is breathing well. I did elect to obtain a CT scan of the patient's abdomen even his persistence of pain. Results as above. Slight fullness of the pancreas however his enzymes are normal. He was given more morphine. I then gave him 0.5 of Dilaudid for his persistence of pain. CBC reveals leukocytosis. anemia with hemoglobin of 13.5. coags normal. patient metabolic panel reveals no evidence of kidney or liver failure. troponin negative. urine reveals trace ketones, trace leuks and small epithelial cells. Drug screen currently positive for benzodiazepines. He is prescribed these. Bedside EKG was obtained and reveals sinus bradycardia, rate of 51 bpm. This was compared to EKG of 10/20/2017, and a QT has shortened. No significant change appears to have occurred. I do not suspect cardiac etiology. Troponin negative. I then discussed the case with the attending physician, and subsequently the hospitalist secondary to the patient's poor control of pain. The decision was made after discussing the case with Dr. Jeb Yeboah, and he recommended 20 mg of Pepcid IV, Protonix 4 mg IV, GI cocktail and 2 mg of Dilaudid IV. He notes that he is familiar with the patient, and was part of his care when he was recently here in his obtunded state. He notes that the patient does have a history of drug use, feels as though the threshold/ tolerance to opiates may require a larger dose therefore prompting the 2 mg of Dilaudid IV. If pain is persistent/ change he could be admitted. We also discussed how the patient does have stable vital signs, but could still have a legitimate source of his pain. He was reevaluated after this medication and his pain was decreased. I discussed with him and he appears stable for outpatient management. He maintained well O2 sats despite the increased opioid. He will be discharged with another individual driving. He is to follow with GI and his family doctor. He is to return with worsening. He was educated upon management, educated upon worrisome symptoms which to return, have questions answered prior to discharge, and was discharged home in good condition. In evaluation treatment this patient the following differential diagnoses were entertained: Pancreatitis, [place], PE, acute cholecystitis, among others. It was important to note that during the patient's stay he was found to have left the emergency department and went to his vehicle. He notes that this is only to obtain a phone foil wrapper. It is also important to note that during the patient's stay I was informed by the nurse, as well as the emergency department volunteer who was helping escort the patient down to the ultrasound suite for his examination, he noted that he wanted to . I then promptly went to the patient's bedside and discussed this with him. He informed me that he has no intent or thoughts to harm himself but notes that because of the pain he cannot take it anymore. We discussed this in depth, and he reassured me that he has no thoughts or plans to harm himself. He states that that statement was only out of expression of how much pain he was experiencing. Impression Primary Impression: Epigastric pain Additional Impression: Anemia Departure Information Dispostion Home / Self-Care Condition GOOD Prescriptions Famotidine (PEPCID) 20 Mg Tab 1 TAB PO BID for 30 Days, #60 TAB 0 Refills Prov: Haresh Barroso PA-C 12/02/17 Referrals No Doctor, Assigned (PCP) Ean Gregory M.D. Patient Instructions My [facility] Additional Instructions You have been treated in the Emergency Department your Abdominal Pain. Laboratory results and imaging studies have ruled out any emergent causes for your abdominal pain which would warrant admission or surgery. NO DRIVING TODAY YOU HAVE RECEIVED NARCOTIC MEDICATION Pepcid every 12 hours for 6 weeks For pain control, you can use the following [id number] medicines (if >12 yo): - Regular strength (325mg/tab) Tylenol (acetaminophen) 2 tabs every 4-6 hours as needed. Do not exceed 12 tablets in a 24 hour period. Avoid taking more than 3 grams (3000 mg) of Tylenol per day. This includes any other sources of acetaminophen you may take on a regular basis. - Regular strength (200 mg/tab) Advil (ibuprofen) 1-2 tabs every 4-6 hours as needed. Do not exceed a dose of 3200 mg per day. Drink plenty of water and stay well hydrated. As with any trip to the Emergency Department, you should follow-up with your Primary Care Provider from today's visit and GI specialist (Dr. Gregory) Return to the emergency department if your symptoms persist despite treatment plan outlined above or if the following symptoms occur: increased fevers, chills , worsening nausea/vomiting, blood in your stool or urine. Problem Qualifiers
[2017-12-02] MEDS ORDERED: ALPRAZOLAM 0.5 MG TAB PO STA (12:27)
[2017-12-02] MEDS ORDERED: GABA-1220 PO (12:30)
[2017-12-02] MEDS ORDERED: ONDA8TAB6 PO (12:30)
[2017-12-02] MEDS ORDERED: PANT20TA2 PO (12:30)
[2017-12-02] MEDS ORDERED: ACET-1693 PO (12:32)
[2017-12-02] MEDS ORDERED: OPTIRAY 320 IV PRN (12:45)
--- NOTE | 2017-12-02 13:13 | DIAGNOSTIC IMAGING REPORT ---
ABD/PELVIS IV CONTRAST ONLY CT DOSE: 351.26 mGycm HISTORY: Pain. Nausea. Epigastric abd pain TECHNIQUE: Multiaxial CT images of the abdomen and pelvis were performed following the use of intravenous contrast. A dose lowering technique was utilized adhering to the principles of ALARA. COMPARISON STUDY: 07/10/2016 FINDINGS: Minimal bibasilar platelike atelectasis. Liver is uniform. Stable postoperative changes of the a partial distal pancreatic resection. Slight fullness of the residual pancreatic tail and body. Nonobstructive bowel pattern. Kidneys enhance uniformly. No evidence for hydronephrosis. Bladder is midline. No free fluid within the pelvic cul-de-sac. IMPRESSION: 1. Slight fullness of the residual pancreatic tail and pancreatic body. 2. Correlation with pancreatic enzymes status is suggested. 3. Remainder of the study is unremarkable. The above report was generated using voice recognition software. It may contain grammatical, syntax or spelling errors. Electronically signed by: Eldon Glaser M.D. 12/02/2017 1:12 PM Dictated Date/Time: 12/02/2017 1:05 PM
[2017-12-02] MEDS ORDERED: HYDROmorphone INJ 0.5 MG/0.5 ML SYR IV STA (13:40)
[2017-12-02] MEDS ORDERED: FAMOTIDINE 20MG/5ML IV PUSH IV STA (14:20)
[2017-12-02] MEDS ORDERED: HYDROmorphone INJ 2 MG/ML SYR/VIAL IV STA (14:20)
[2017-12-02] MEDS ORDERED: PANTOprazole INJ 40 MG in SYRINGE 0 ML IV STA (14:20)
[2017-12-02] MEDS ORDERED: GI COCKTAIL PO STA (14:20)
[2017-12-02] MEDS ORDERED: FAMO20TA9 PO (15:55)
[2017-12-02 16:10] VITALS: BP 137/76; PULSE 62; O2SAT 98
== END 2017-12-02 16:40 | disposition home or self-care (01) ==
LOC: C.EDB 09:52 → C.EDC 16:40
DX: R10.13 Epigastric pain (principal); D64.9 Anemia, unspecified; R00.1 Bradycardia, unspecified; F11.20 Opioid dependence, uncomplicated; F17.200 Nicotine dependence, unspecified, uncomplicated; F12.10 Cannabis abuse, uncomplicated; D72.829 Elevated white blood cell count, unspecified; Z85.07 Personal history of malignant neoplasm of pancreas

== ENCOUNTER 2017-12-29 21:13 | Emergency (ER) | payer OTHER ==
[~2017-12-29] VITALS: Ht 175.3 cm; Wt 63.1 kg
[~2017-12-29 21:13] MED LIST changes: +ACET-1693 PO; +FAMO20TA9 PO; +GABA-1220 PO; -NRN/300 PO; +ONDA-170 PO; +PANT20TA2 PO
[2017-12-29 21:17] VITALS: TEMP 36.8; Ht 175.3 cm; Wt 63.1 kg
[2017-12-29] MEDS ORDERED: ONDANSETRON 4MG OD TAB PO ONE (22:30)
[2017-12-29] MEDS ORDERED: AMPH20TA2 PO (23:15)
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
[2017-12-30 00:15] VITALS: BP 104/65; PULSE 77; O2SAT 98
--- NOTE | 2017-12-30 06:53 | DIAGNOSTIC IMAGING REPORT ---
L PELVIS/UNILATERAL HIP 2-3VIEWS CLINICAL HISTORY: 37 years-old Male presenting with lt pelvis pain. TECHNIQUE: Single frontal view the pelvis and frontal and frog-leg lateral views of the left hip were obtained. COMPARISON: CT from 12/02/2017. FINDINGS: Postsurgical changes of the proximal metadiaphysis of the right femur with prior intramedullary nail track and resulting heterotopic ossification. Posttraumatic deformities of the right superior and inferior pubic rami. No acute fracture. No advanced degenerative change. The bilateral hip joints are congruent. The left hip joint specifically is normal. IMPRESSION: 1. No acute osseous injury of the left hip. 2. Posttraumatic changes of the right superior and inferior pubic rami and postsurgical changes of the right femur. Electronically signed by: Michael Borden M.D. 12/30/2017 6:51 AM Dictated Date/Time: 12/30/2017 6:49 AM
== END 2017-12-30 00:41 | disposition home or self-care (01) ==
LOC: C.EDB 21:15
DX: T76.11XA Adult physical abuse, suspected, initial encounter (principal); T43.621A Poisoning by amphetamines, accidental (unintentional), initial encounter; T42.4X1A Poisoning by benzodiazepines, accidental (unintentional), initial encounter; Y08.89XA Assault by other specified means, initial encounter; Y07.9 Unspecified perpetrator of maltreatment and neglect; Z77.29 Contact with and (suspected) exposure to other hazardous substances; R51 Headache; H93.11 Tinnitus, right ear; H53.8 Other visual disturbances; M25.552 Pain in left hip; R20.0 Anesthesia of skin; R11.0 Nausea; R41.3 Other amnesia; F17.200 Nicotine dependence, unspecified, uncomplicated; F12.90 Cannabis use, unspecified, uncomplicated

== ENCOUNTER 2017-12-31 13:18 | Observation (INO) | payer OTHER ==
[~2017-12-31] VITALS: Ht 175.3 cm; Wt 75.0 kg
[~2017-12-31 13:18] MED LIST changes: +AMPH20TA2 PO
[2017-12-31 13:34] VITALS: O2SAT 95
[2017-12-31 13:50] LABS: BASO % 0.4 %; BASO ABS # 0.03 K/uL (0-0.2); EOS % 3.9 %; HEMATOCRIT 35.4 % (42-52); HEMOGLOBIN 12.5 g/dL (14.0-18.0); LYMPH % 42.7 %; LYMPH ABS # 3.28 K/uL (1.2-3.4); MEAN CELL VOLUME 89.4 fL (80-100); MEAN CORPUSCULAR HEMOGLOBIN 31.6 pg (25-34); MEAN CORPUSCULAR HGB CONC 35.3 g/dl (32-36); MEAN PLATELET VOLUME 10.9 fL (7.4-10.4); MONO % 13.7 %; MONO ABS # 1.05 K/uL (0.11-0.59); NEUT % 39.3 %; NEUT ABS # 3.02 K/uL (1.4-6.5); PLATELET COUNT 257 K/uL (130-400); RED CELL DISTRIBUTION WIDTH CV 12.7 % (11.5-14.5); RED CELL DISTRIBUTION WIDTH SD 41.6 fL (36.4-46.3); WHITE BLOOD COUNT 7.68 K/uL (4.8-10.8)
[2017-12-31 13:58] LABS: INR 0.9 (0.9-1.1)
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
[2017-12-31] MEDS ORDERED: OPTIRAY 320 IV PRN (14:00)
[2017-12-31 14:03] LABS: ISTAT CREATININE 0.9 mg/dl (0.6-1.3); ISTAT IONIZED CALCIUM 1.25 mmol/l (1.12-1.32)
[2017-12-31 14:10] LABS: ALBUMIN 3.6 gm/dl (3.4-5.0); CREATININE 0.81 mg/dl (0.60-1.40)
[2017-12-31 14:13] LABS: TOTAL PROTEIN 7.1 gm/dl (6.4-8.2)
--- NOTE | 2017-12-31 14:14 | DIAGNOSTIC IMAGING REPORT ---
HEAD WITHOUT CONTRAST (CT) CT DOSE: HISTORY: Mental status change eval for bleed TECHNIQUE: Multiaxial CT images of the head were performed without the use of intravenous contrast. A dose lowering technique was utilized adhering to the principles of ALARA. Comparison: 10/20/2017 Findings: The paranasal sinuses and mastoid air cells are clear. The calvarium and skull base are intact. The ventricles and sulci are within normal limits. There is no mass, hematoma, midline shift, or acute infarct. Impression: No acute intracranial abnormality. The above report was generated using voice recognition software. It may contain grammatical, syntax or spelling errors. Electronically signed by: Eldon Glaser M.D. 12/31/2017 2:13 PM Dictated Date/Time: 12/31/2017 2:12 PM
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
--- NOTE | 2017-12-31 14:18 | DIAGNOSTIC IMAGING REPORT ---
SOFT TISSUE NECK WITH CLINICAL HISTORY: eval for trauma/dissection TECHNIQUE: Transaxial acquisition with multi axial reformatted images COMPARISON STUDY: None FINDINGS: Major soft tissue structures the neck are unremarkable. Salivary glands are symmetric. Glottic and subglottic regions are unremarkable. No evidence of mass or collection. Major vasculature of the neck is unremarkable. There is no evidence for aneurysm or dissection. IMPRESSION: Normal study The above report was generated using voice recognition software. It may contain grammatical, syntax or spelling errors. Electronically signed by: Eldon Glaser M.D. 12/31/2017 2:17 PM Dictated Date/Time: 12/31/2017 2:15 PM
[2017-12-31] MEDS ORDERED: ONDANSETRON 8 MG TAB PO PRN (16:15)
[2017-12-31] MEDS ORDERED: ONDANSETRON INJ 2 MG/ML 2 ML VIAL IV PRN (16:15)
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
[2017-12-31 16:27] VITALS: O2SAT 100; Ht 175.3 cm; Wt 75.0 kg
[2017-12-31 16:44] VITALS: BP 117/62
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
[2017-12-31] MEDS ORDERED: GABAPENTIN 400 MG CAP PO SCH (17:00)
[2017-12-31] MEDS ORDERED: SODIUM CHLOR 0.45% + 20MEQ KCL 1,000 ML IV SCH (18:00)
[2017-12-31] MEDS ORDERED: ENOXAPARIN 40 MG/0.4 ML SYR SC SCH (18:30)
[2017-12-31 18:56] VITALS: PULSE 94; O2SAT 76
--- NOTE | 2017-12-31 19:24 | Progress Note ---
Progress Note Date of Service Dec 31, 2017. Progress Note pCO2 noted, Bipap ordered, repeat ABG ordered. signed out case to nighttime coverage for f/u on ABG, UDS still pending as well
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
[2017-12-31] MEDS ORDERED: FAMOTIDINE 20 MG TAB PO SCH (21:00)
--- NOTE | 2017-12-31 21:51 | Progress Note ---
Progress Note Date of Service Dec 31, 2017. Progress Note ~2030 Received page about Patient requesting to leave. Nurse reports that patient admits to "faking his unresponsiveness." I went up to talk to the patient. Girlfriend present at beside with multiple questions. I explained that his aBG from earlier this morning showed hypercarbia and acidosis. We are waiting for repeat abg at this time. Regardless, he refused BiPap all together. His girlfriend also denies overdose on his Meds. Urine drug screen is positive for Amphetamines and benzos (prescribed). I recommended staying over night for observation, however the patient reports that he has pancreatic cancer and doesn't really need to stay because he could " tonight." They had a lot of questions about his pancreatic mass. I did not have much to offer with regards to that, but advised that this would be followed up outpatient. Should he stay over night, this can be addressed with the day team. All risks of leaving the hospital tonight were addressed with the patient and his girlfriend. He agrees and understands that he takes responsibility for his decision to leave AMA. AMA papers signed.
[2018-01-01] MEDS ORDERED: DULOXETINE (CYMBALTA) 30 MG CAP PO SCH (09:00)
[2018-01-01] MEDS ORDERED: PANTOprazole SOD 40 MG TAB PO SCH (09:00)
[2018-01-02 12:02] LABS: ISTAT CREATININE 0.9 mg/dl (0.6-1.3); ISTAT IONIZED CALCIUM 1.26 mmol/l (1.12-1.32); ISTAT SODIUM 137 mEq/L (135-144)
== END 2017-12-31 20:50 | disposition left against medical advice (07) ==
LOC: C.EDB 13:20 → C.2T 16:08 → EDBEDREQ 16:13 → ENRESERV 16:23
PROVIDERS: ADMIT Family Medicine; ATTEND Family Medicine
DX: R41.82 Altered mental status, unspecified (principal); Z91.19 Patient's noncompliance with other medical treatment and regimen; R00.1 Bradycardia, unspecified; K86.9 Disease of pancreas, unspecified; R79.89 Other specified abnormal findings of blood chemistry; M54.17 Radiculopathy, lumbosacral region; F17.200 Nicotine dependence, unspecified, uncomplicated; Z87.01 Personal history of pneumonia (recurrent); Z90.81 Acquired absence of spleen

== ENCOUNTER 2018-01-01 19:13 | Emergency (ER) | payer OTHER ==
[~2018-01-01] VITALS: Ht 175.3 cm; Wt 63.5 kg
[~2018-01-01 19:13] MED LIST changes: -ACET-1693 PO
[2018-01-01 19:16] VITALS: TEMP 36.2; Ht 175.3 cm; Wt 63.5 kg
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
[2018-01-01 20:19] LABS: BASO % 0.2 %; BASO ABS # 0.02 K/uL (0-0.2); EOS ABS # 0.17 K/uL (0-0.5); HEMATOCRIT 38.5 % (42-52); HEMOGLOBIN 13.4 g/dL (14.0-18.0); IG# 0.01 K/uL (0.00-0.02); LYMPH % 44.6 %; LYMPH ABS # 3.81 K/uL (1.2-3.4); MEAN CELL VOLUME 90.4 fL (80-100); MEAN CORPUSCULAR HEMOGLOBIN 31.5 pg (25-34); MEAN CORPUSCULAR HGB CONC 34.8 g/dl (32-36); MONO % 12.2 %; MONO ABS # 1.04 K/uL (0.11-0.59); NEUT % 40.9 %; NEUT ABS # 3.49 K/uL (1.4-6.5); PLATELET COUNT 296 K/uL (130-400); RED CELL DISTRIBUTION WIDTH CV 12.9 % (11.5-14.5); RED CELL DISTRIBUTION WIDTH SD 42.5 fL (36.4-46.3); WHITE BLOOD COUNT 8.54 K/uL (4.8-10.8)
--- NOTE | 2018-01-01 20:30 | DIAGNOSTIC IMAGING REPORT ---
CHEST ONE VIEW PORTABLE HISTORY: 37 years-old Male CHEST PAIN acute atypical chest pain COMPARISON: Chest radiograph 12/31/2017 TECHNIQUE: Portable AP view of the chest FINDINGS: Cardiomediastinal and hilar silhouettes are within normal limits. There is no pneumothorax, pleural effusion, focal airspace consolidation or overt pulmonary edema. The bones of the chest appear grossly intact. Minimal levoscoliosis of the upper thoracic spine redemonstrated. IMPRESSION: No acute process. The above report was generated using voice recognition software. It may contain grammatical, syntax or spelling errors. Electronically signed by: Mesfin Miguel M.D. 01/01/2018 8:28 PM Dictated Date/Time: 01/01/2018 8:24 PM
[2018-01-01 20:43] LABS: ALBUMIN 3.8 gm/dl (3.4-5.0); ALT/SGPT 39 U/L (12-78); BLOOD UREA NITROGEN 15 mg/dl (7-18); CALCIUM 9.1 mg/dl (8.5-10.1); CARBON DIOXIDE 32 mmol/L (21-32); CREATININE 1.08 mg/dl (0.60-1.40); GLUCOSE 95 mg/dl (70-99); LIPASE 78 U/L (73-393); SODIUM 137 mmol/L (136-145)
[2018-01-01 20:45] LABS: ALKALINE PHOSPHATASE 101 U/L (45-117); AST/SGOT 41 U/L (15-37); TOTAL PROTEIN 7.6 gm/dl (6.4-8.2)
[2018-01-01 21:27] VITALS: O2SAT 97
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
[2018-01-02 02:58] VITALS: BP 119/81; PULSE 78; O2SAT 98
== END 2018-01-02 02:59 | disposition home or self-care (01) ==
LOC: C.EDB 19:15
DX: R41.82 Altered mental status, unspecified (principal); F13.90 Sedative, hypnotic, or anxiolytic use, unspecified, uncomplicated; F15.90 Other stimulant use, unspecified, uncomplicated; T76.1 Physical abuse, suspected; F41.9 Anxiety disorder, unspecified; R07.9 Chest pain, unspecified; R06.02 Shortness of breath; F12.90 Cannabis use, unspecified, uncomplicated; F17.200 Nicotine dependence, unspecified, uncomplicated; C25.9 Malignant neoplasm of pancreas, unspecified

== ENCOUNTER 2018-01-19 12:58 | Emergency (ER) | payer OTHER ==
[~2018-01-19] VITALS: Ht 175.3 cm; Wt 62.8 kg
[2018-01-19 13:02] VITALS: TEMP 36.4; Ht 175.3 cm; Wt 62.8 kg
[2018-01-19] MEDS ORDERED: KETOROLAC TROMETHAMINE 30 MG/ML VIAL IV STA (13:15)
[2018-01-19 13:34] VITALS: O2SAT 96
[2018-01-19 13:42] LABS: BASO % 0.2 %; BASO ABS # 0.03 K/uL (0-0.2); EOS % 0.4 %; EOS ABS # 0.08 K/uL (0-0.5); HEMOGLOBIN 12.4 g/dL (14.0-18.0); IG# 0.09 K/uL (0.00-0.02); LYMPH % 22.9 %; LYMPH ABS # 4.52 K/uL (1.2-3.4); MEAN CELL VOLUME 90.9 fL (80-100); MEAN CORPUSCULAR HEMOGLOBIN 31.3 pg (25-34); MEAN CORPUSCULAR HGB CONC 34.4 g/dl (32-36); MEAN PLATELET VOLUME 10.9 fL (7.4-10.4); MONO % 5.7 %; MONO ABS # 1.12 K/uL (0.11-0.59); NEUT % 70.3 %; NEUT ABS # 13.87 K/uL (1.4-6.5); PLATELET COUNT 477 K/uL (130-400); RED CELL DISTRIBUTION WIDTH CV 13.7 % (11.5-14.5); RED CELL DISTRIBUTION WIDTH SD 45.5 fL (36.4-46.3); WHITE BLOOD COUNT 19.71 K/uL (4.8-10.8)
[2018-01-19 14:08] LABS: ALBUMIN 3.7 gm/dl (3.4-5.0); ALKALINE PHOSPHATASE 105 U/L (45-117); ALT/SGPT 31 U/L (12-78); AST/SGOT 27 U/L (15-37); BLOOD UREA NITROGEN 16 mg/dl (7-18); CALCIUM 8.8 mg/dl (8.5-10.1); CARBON DIOXIDE 29 mmol/L (21-32); CREATININE 0.97 mg/dl (0.60-1.40); GLUCOSE 90 mg/dl (70-99); LIPASE 78 U/L (73-393); POTASSIUM 3.9 mmol/L (3.5-5.1); SODIUM 139 mmol/L (136-145); TOTAL PROTEIN 7.4 gm/dl (6.4-8.2)
[2018-01-19] MEDS ORDERED: FAMO20TA11 PO (14:12)
[2018-01-19] MEDS ORDERED: GABA600T PO (14:12)
--- NOTE | 2018-01-19 14:13 | DIAGNOSTIC IMAGING REPORT ---
PA CHEST WITH LEFT-SIDED RIB SERIES CLINICAL HISTORY: Fall from ladder. Left-sided chest wall pain. FINDINGS: A PA chest radiograph with 4 additional views may left-sided rib series is compared to study dated 01/01/2018. The cardiomediastinal silhouette is unremarkable. The lungs and pleural spaces are clear. No pneumothorax is seen. There are acute left lateral 9th and 10th rib fractures seen on the rib series. The remainder of the bony thorax is grossly intact. Two-dimensional seen in the left upper quadrant. IMPRESSION: 1. The lungs are clear. 2. There are acute left 9th and 10th rib fractures identified on the rib series. Electronically signed by: Daniel Pérez M.D. 01/19/2018 2:12 PM Dictated Date/Time: 01/19/2018 2:04 PM
--- NOTE | 2018-01-19 14:49 | EMERGENCY ROOM VISIT NOTE ---
History Report prepared by Gómez: Rachid Chavira Under the Supervision of: Dr. Lj Ott M.D. First contact with patient: 13:05 Chief Complaint: FALL Stated Complaint: PAIN WHEN DEEP BREATHING, CHEST PAIN, FALL History of Present Illness The patient is a 37 year old white male with a past medical history of left lumbosacral radiculopathy, lumbar radicular pain, metabolic encephalopathy, opioid dependence, pancreatic tumor, pancreatitis, pneumonia, and scrotal varices who presents to the Emergency Room with complaints of constant pain in his abdomen that began 7 days ago, after a traumatic fall. The patient states that he fell from a ladder at a height of 20 feet last . The patient states that the ladder slid down on itself and he his his left lower abdominal quadrant and left ribs on the ladder. His pain is now localized to that area, as well as radiating into his back. He describes the pain as "sharp" and notes that it is worsened by deep inhalation. The patient did lose consciousness following the fall, and a witness notes that he was unconscious for about 10 seconds. He has been taking Tylenol and Advil without relief. The patient notes that he is concerned of any injury to his abdomen secondary to his history of pancreatic cancer. Source of History: patient Onset: 7 days ago Position: abdomen (LLQ) Quality: sharp Timing: constant, other (Pain following traumatic fall) Modifying Factors (Worsening): breathing (deep inhalation) Associated Symptoms: + LOC Review of Systems See HPI for pertinent positives and negatives. A total of ten systems were reviewed and were otherwise negative. Past Medical & Surgical Medical Problems: (1) Left lumbosacral radiculopathy (2) Lumbar radicular pain (3) Lumbar radicular pain (4) Metabolic encephalopathy (5) Opioid dependence (6) Pancreatic tumor (7) Pancreatitis (8) Pneumonia (9) Scrotal Varices (10) Unresponsive Surgical Problems: (1) Femur fracture, right (2) H/O splenectomy (3) Pelvic fracture Family History Cancer Social History Smoking Status: Current Every Day Smoker Alcohol Use: occasionally Drug Use: marijuana Marital Status: Housing Status: lives with significant other Occupation Status: unemployed Current/Historical Medications Scheduled Amphetamine-Dextroamphetamine 20MG (Adderall 20MG), 20 MG PO BID Duloxetine HCl (Cymbalta), 30 MG PO DAILY Famotidine (Pepcid), 20 MG PO BID Gabapentin (Neurontin), 600 MG PO QID Pantoprazole Sodium (Protonix), 20 MG PO DAILY Tramadol Hcl (Ultram), 50 MG PO Q8H Zolpidem Tartrate (Ambien), 10 MG PO HS Scheduled PRN Alprazolam (Xanax), 1 MG PO TID PRN for Anxiety Ibuprofen (Ibuprofen), 400 MG PO Q4 PRN for Pain Ondansetron Hcl (Zofran), 8 MG PO TID PRN for Nausea Allergies Coded Allergies: No Known Allergies (Unverified , NONE, 12/31/17) Physical Exam Vital Signs Date Time Temp Pulse Resp B/P (MAP) Pulse Ox O2 Delivery O2 Flow Rate FiO2 01/19/18 14:52 65 18 127/63 95 Room Air 01/19/18 14:21 62 18 133/78 95 Room Air 01/19/18 13:38 66 01/19/18 13:34 96 Room Air 01/19/18 13:02 36.4 69 18 153/92 98 Room Air Physical Exam GENERAL: Awake, alert, well-appearing, NAD HENT: Normocephalic, atraumatic. EYES: Normal conjunctiva. Sclera non-icteric. NECK: Supple. No nuchal rigidity. FROM. RESPIRATORY: CTAB, no rhonchi, wheezing, crackles CARDIAC: RRR, no MRG ABDOMEN: Soft, NTND, BS+ MSK:left sided anterior lower chest wall TTP, no obvious deformities, no LE edema NEURO: GCS 15, CN 2-12 intact, moves all 4s on command SKIN: No rash or jaundice noted. Medical Decision & Procedures ER Provider Diagnostic Interpretation: Radiology results as stated below per my review and radiologist interpretation: PA CHEST WITH LEFT-SIDED RIB SERIES CLINICAL HISTORY: Fall from ladder. Left-sided chest wall pain. FINDINGS: A PA chest radiograph with 4 additional views may left-sided rib series is compared to study dated 01/01/2018. The cardiomediastinal silhouette is unremarkable. The lungs and pleural spaces are clear. No pneumothorax is seen. There are acute left lateral 9th and 10th rib fractures seen on the rib series. The remainder of the bony thorax is grossly intact. Two-dimensional seen in the left upper quadrant. IMPRESSION: 1. The lungs are clear. 2. There are acute left 9th and 10th rib fractures identified on the rib series. Electronically signed by: Daniel Pérez M.D. 01/19/2018 2:12 PM Dictated Date/Time: 01/19/2018 2:04 PM Laboratory Results 01/19/18 13:30 Red Blood Count 3.96, Mean Corpuscular Volume 90.9, Mean Corpuscular Hemoglobin 31.3, Mean Corpuscular Hemoglobin Concent 34.4, Mean Platelet Volume 10.9, Neutrophils (%) (Auto) 70.3, Lymphocytes (%) (Auto) 22.9, Monocytes (%) (Auto) 5.7, Eosinophils (%) (Auto) 0.4, Basophils (%) (Auto) 0.2, Neutrophils # (Auto) 13.87, Lymphocytes # (Auto) 4.52, Monocytes # (Auto) 1.12, Eosinophils # (Auto) 0.08, Basophils # (Auto) 0.03 01/19/18 13:30 Test 01/19/18 13:30 01/19/18 13:40 White Blood Count 19.71 K/uL (4.8-10.8) Red Blood Count 3.96 M/uL (4.7-6.1) Hemoglobin 12.4 g/dL (14.0-18.0) Hematocrit 36.0 % (42-52) Mean Corpuscular Volume 90.9 fL (80-100) Mean Corpuscular Hemoglobin 31.3 pg (25-34) Mean Corpuscular Hemoglobin Concent 34.4 g/dl (32-36) Platelet Count 477 K/uL (130-400) Mean Platelet Volume 10.9 fL (7.4-10.4) Neutrophils (%) (Auto) 70.3 % Lymphocytes (%) (Auto) 22.9 % Monocytes (%) (Auto) 5.7 % Eosinophils (%) (Auto) 0.4 % Basophils (%) (Auto) 0.2 % Neutrophils # (Auto) 13.87 K/uL (1.4-6.5) Lymphocytes # (Auto) 4.52 K/uL (1.2-3.4) Monocytes # (Auto) 1.12 K/uL (0.11-0.59) Eosinophils # (Auto) 0.08 K/uL (0-0.5) Basophils # (Auto) 0.03 K/uL (0-0.2) RDW Standard Deviation 45.5 fL (36.4-46.3) RDW Coefficient of Variation 13.7 % (11.5-14.5) Immature Granulocyte % (Auto) 0.5 % Immature Granulocyte # (Auto) 0.09 K/uL (0.00-0.02) Anion Gap 3.0 mmol/L (3-11) Est Creatinine Clear Calc Drug Dose 91.7 ml/min Estimated GFR () 114.3 Estimated GFR (Non- 98.6 BUN/Creatinine Ratio 16.7 (10-20) Calcium Level 8.8 mg/dl (8.5-10.1) Total Bilirubin 0.5 mg/dl (0.2-1) Direct Bilirubin mg/dl (0-0.2) Aspartate Amino Transf (AST/SGOT) 27 U/L (15-37) Alanine Aminotransferase (ALT/SGPT) 31 U/L (12-78) Alkaline Phosphatase 105 U/L (45-117) Troponin I < 0.015 ng/ml (0-0.045) Total Protein 7.4 gm/dl (6.4-8.2) Albumin 3.7 gm/dl (3.4-5.0) Lipase 78 U/L (73-393) Chemistry Specimen Hemolysis Urine Color YELLOW Urine Appearance CLEAR (CLEAR) Urine pH 5.0 (4.5-7.5) Urine Specific Mims 1.017 (1.000-1.030) Urine Protein NEG (NEG) Urine Glucose (UA) NEG (NEG) Urine Ketones NEG (NEG) Urine Occult Blood NEG (NEG) Urine Nitrite NEG (NEG) Urine Bilirubin NEG (NEG) Urine Urobilinogen NEG (NEG) Urine Leukocyte Esterase NEG (NEG) Laboratory results reviewed by me Medications Administered Medications (Trade) Dose Ordered Sig/Angelito Route Start Time Stop Time Status Last Admin Dose Admin Ketorolac Tromethamine (Toradol Inj) 30 mg NOW STAT IV 01/19/18 13:15 01/19/18 13:18 DC 01/19/18 13:36 30 MG Procedure BEDSIDE US: Negative FAST Exam. ECG Per My Interpretation Indication: abdominal pain Rate (beats per minute): 63 Rhythm: normal sinus Findings: T-wave inversion (V2 and V3), other (Normal interval, normal axis) Comparison ECG Date: 12/31/2017 Change: no significant change ED Course 1311: The patient was evaluated in room C12B. A complete history and physical exam was performed. 1315: Ordered Toradol 30 mg IV. 1321: I performed a bedside US at this time. Negative FAST Exam 1420: I reevaluated the patient. Discussed results and discharge instructions: He verbalized understanding and agreement. The patient is ready for discharge. Medical Decision Nursing notes reviewed. Ancillary studies and prior records reviewed. The patient is a 37 year old white male with a past medical history of left lumbosacral radiculopathy, lumbar radicular pain, metabolic encephalopathy, opioid dependence, pancreatic tumor, pancreatitis, pneumonia, and scrotal varices who presents to the Emergency Room with complaints of constant pain in his abdomen that began 7 days ago, after a traumatic fall. Differential diagnosis: Etiologies such as cardiac ischemia, aortic dissection, pulmonary embolism, pneumonia, pneumothorax, musculoskeletal, infections, pericarditis, myocarditis , esophageal rupture, gastrointestinal, as well as others were entertained. Patient was seen and evaluated the bedside. Patient reportedly fell from a ladder she states approximately 15-20 feet this occurred last . Patient states he has had some discomfort so he presented today. Patient is not tachypneic, tachycardic, nor hypoxic. On exam he does have some mild left lateral wall TTP. We did perform a bedside fast which showed no free fluid within the pelvis and no pericardial effusion. Patient did have blood work completed along with a chest x-ray and rib series. A urinalysis was also performed. Patient's white blood cell count was 19,000. I believe this is likely reactive. The patient has baseline stable chronic anemia. The patient has no blood in the urine. Given the fact that he had a negative fast no blood in the urine and he has normal kidney function less likely splenic or kidney injury. Patient does have a some rib fractures but no pneumothorax or pleural effusion concerning for hemothorax. I believe that he would have worsening manifestations of injury a week out if he did need a CT scan. Upon reassessment the patient was feeling improved. The patient does have a known history of narcotics abuse. Patient was not given any narcotics for home. He was given a short course of tramadol. Patient had a good incentive spirometry and was given an incentive spirometer for home. The patient was deemed suitable for outpatient follow-up and treatment at this time. Patient was given strict follow-up, discharge, and return precautions. All questions were answered. Patient was deemed suitable for outpatient follow-up at this time. Patient agreed with the plan of care and was safely discharged home. Medication Reconcilliation Current Medication List: was personally reviewed by me Blood Pressure Screening Patient's blood pressure: Elevated blood pressure Blood pressure disposition: Elevated BP felt to be situational Impression Primary Impression: Ribs, multiple fractures Additional Impressions: Anemia Fall Scribe Attestation The scribe's documentation has been prepared under my direction and personally reviewed by me in its entirety. I confirm that the note above accurately reflects all work, treatment, procedures, and medical decision making performed by me. Departure Information Dispostion Home / Self-Care Prescriptions Tramadol Hcl (ULTRAM) 50 Mg Tab 50 MG PO Q8H, #12 TAB PRN PAIN Prov: Lj Ott M.D. 01/19/18 Referrals No Doctor, Assigned (PCP) Patient Instructions ED Fx Rib, My [facility] Additional Instructions Please return to the emergency department if you have worsening or recurrent symptoms not amenable to at-home treatment. Please call for a follow-up appointment with her primary care physician. Please take your medications as prescribed. If you have other concerns and/or complaints please feel free to also call your primary care physician's office or return the ED for further evaluation, management, and treatment. You may take 600 mg Ibuprofen every 6 hours as needed for pain with food. You may take tylenol 1000 mg every 6 hours as needed for pain. You may take motrin and tylenol separately or at the same time. If he still have discomfort you may take the tramadol. Please use your incentive spirometer 10 breaths to 6 times per day. Take your medications as prescribed. You have been examined and treated today on an emergency basis only. This is not a substitute for, or an effort to provide, complete comprehensive medical care. It is impossible to recognize and treat all injuries or illnesses in a single emergency department visit. It is therefore important that you follow up closely with [facility], your PCP, and/or your specialist(s). Call as soon as possible for an appointment. Thank you for your time and consideration. I look forward to speaking with you again soon. Please don't hesitate to call us if you have any questions. Problem Qualifiers Primary Impression: Ribs, multiple fractures Encounter type: initial encounter Fracture type: closed Laterality: left Qualified Codes: S22.42XA - Multiple fractures of ribs, left side, initial encounter for closed fracture Additional Impressions: Anemia Anemia type: unspecified type Qualified Codes: D64.9 - Anemia, unspecified Fall Encounter type: initial encounter Qualified Codes: W19.XXXA - Unspecified fall, initial encounter
[2018-01-19 14:52] VITALS: BP 127/63; PULSE 65; O2SAT 95
[2018-01-19] MEDS ORDERED: TRAM-453 PO (15:23)
== END 2018-01-19 15:32 ==
LOC: C.EDB 12:59 → C.EDC 15:32
DX: S22.42XA Multiple fractures of ribs, left side, initial encounter for closed fracture (principal); W11.XXXA Fall on and from ladder, initial encounter; D64.9 Anemia, unspecified; D72.829 Elevated white blood cell count, unspecified; F17.200 Nicotine dependence, unspecified, uncomplicated; F12.90 Cannabis use, unspecified, uncomplicated

== ENCOUNTER 2018-01-21 03:02 | Emergency (ER) | payer OTHER ==
[~2018-01-21 03:02] MED LIST changes: +FAMO20TA11 PO; -FAMO20TA9 PO; -GABA-1220 PO; +GABA600T PO; +TRAM-453 PO
[2018-01-21 03:17] VITALS: TEMP 36.9
[2018-01-21] MEDS ORDERED: TRAMADOL HCL 50 MG TAB PO STA (03:31)
[2018-01-21 03:37] VITALS: O2SAT 97
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
[2018-01-21 04:02] VITALS: BP 143/88; PULSE 67; O2SAT 96
--- NOTE | 2018-01-21 07:40 | DIAGNOSTIC IMAGING REPORT ---
CHEST ONE VIEW PORTABLE CLINICAL HISTORY: 37 years-old Male presenting with sob, rib fx. TECHNIQUE: PA and lateral views of the chest were obtained. COMPARISON: 01/01/2018. FINDINGS: Cardiomediastinal silhouette normal. Lungs and pleural spaces clear. Osseous structures normal. Upper abdomen normal. IMPRESSION: 1. No acute cardiopulmonary disease. Electronically signed by: Michael Borden M.D. 01/21/2018 7:38 AM Dictated Date/Time: 01/21/2018 7:36 AM
[2018-01-22] MEDS ORDERED: CLON2TAB3 PO (21:07)
[2018-01-22] MEDS ORDERED: NRN400 PO (21:07)
== END 2018-01-21 04:07 ==
LOC: EDBD 03:02 → C.EDA 03:03
DX: S22.42XA Multiple fractures of ribs, left side, initial encounter for closed fracture (principal); Y04.0XXA Assault by unarmed brawl or fight, initial encounter; R03.0 Elevated blood-pressure reading, without diagnosis of hypertension; F17.200 Nicotine dependence, unspecified, uncomplicated; F12.90 Cannabis use, unspecified, uncomplicated

== ENCOUNTER 2018-01-22 20:42 | Emergency (ER) | payer OTHER ==
[~2018-01-22] VITALS: Ht 175.3 cm; Wt 62.0 kg
[2018-01-22 20:49] VITALS: TEMP 36.6; O2SAT 98; Ht 175.3 cm; Wt 62.0 kg
[2018-01-22] MEDS ORDERED: CLON2TAB3 PO (21:07)
[2018-01-22] MEDS ORDERED: NRN400 PO (21:07)
[2018-01-22] MEDS ORDERED: KETOROLAC TROMETHAMINE 60 MG/2 ML VIAL IM STA (21:15)
--- NOTE | 2018-01-22 21:36 | DIAGNOSTIC IMAGING REPORT ---
CHEST ONE VIEW PORTABLE CLINICAL HISTORY: Atypical chest pain COMPARISON STUDY: 01/21/2018, CT scan dated 10/20/2017 FINDINGS: The cardiac and mediastinal contours are normal. There is no evidence of focal pulmonary consolidation. There is no evidence of failure. No pleural effusions are visualized.[ Increased density of the right medial lung apex, likely represents a summation. There was no mass visualized in this area on the October CT scan. IMPRESSION: No active disease in the chest. Electronically signed by: Erwin Gilliam M.D. 01/22/2018 9:35 PM Dictated Date/Time: 01/22/2018 9:34 PM
[2018-01-22 22:15] VITALS: BP 126/72; PULSE 56
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
== END 2018-01-22 22:15 | disposition home or self-care (01) ==
LOC: EDBD 20:42 → C.EDB 20:46
DX: S22.42XD Multiple fractures of ribs, left side, subsequent encounter for fracture with routine healing (principal); Y04.8XXD Assault by other bodily force, subsequent encounter; Z87.01 Personal history of pneumonia (recurrent); Z80.9 Family history of malignant neoplasm, unspecified; F17.210 Nicotine dependence, cigarettes, uncomplicated; F12.90 Cannabis use, unspecified, uncomplicated; Z79.899 Other long term (current) drug therapy

== ENCOUNTER 2018-02-24 15:47 | Emergency (ER) | payer OTHER ==
[2018-02-24 15:47] VITALS: TEMP 36.8
[~2018-02-24 15:47] MED LIST changes: -ALPR1TAB2 PO; -AMPH20TA2 PO; +CLON2TAB3 PO; -CYM/30 PO; -GABA600T PO; +NRN400 PO; -ONDA-170 PO; -TRAM-453 PO; -ZOLP10TA PO
[2018-02-24 16:07] VITALS: O2SAT 96
[2018-02-24] MEDS ORDERED: GABA-112 PO (16:18)
[2018-02-24] MEDS ORDERED: ALPR1TAB3 PO (16:18)
[2018-02-24] MEDS ORDERED: CYM/30 PO (16:18)
[2018-02-24] MEDS ORDERED: AMPH20TA2 PO (16:18)
[2018-02-24] MEDS ORDERED: ZOLP10TA PO (16:18)
[2018-02-24] MEDS ORDERED: GABA-1220 PO (16:18)
[2018-02-24] MEDS ORDERED: TRAM-10 PO (16:18)
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
[2018-02-24 18:16] VITALS: BP 104/62; PULSE 84; O2SAT 94
== END 2018-02-24 18:18 | disposition home or self-care (01) ==
LOC: EDBD 15:47 → C.EDC 15:49
DX: T42.4X1A Poisoning by benzodiazepines, accidental (unintentional), initial encounter (principal); T40.5X1A Poisoning by cocaine, accidental (unintentional), initial encounter; F17.200 Nicotine dependence, unspecified, uncomplicated